=== PATIENT | female | born 1975 | race Caucasian/White ===

== ENCOUNTER 2019-10-08 08:43 | Outpatient (CLI) | payer OTHER, SELFPAY ==
--- NOTE | 2019-10-08 08:49 | MM_ITS ---
WS: [id number] BILATERAL DIGITAL SCREENING MAMMOGRAPHY WITH CAD CLINICAL INFORMATION: SCREENING HISTORY: Screening mammogram. No current complaints. COMPARISON: TECHNIQUE: Bilateral CC and MLO views. FINDINGS: The breasts are composed of heterogeneous fibroglandular density tissue, which can limit the detectio n of small underlying mass lesions. No suspicious mass, asymmetry, calcifications, or architectural d istortion. No evidence of malignancy. [place] centered calcifications left breast. MM/[id number] IMPRESSION: BI-RADS: 2-Benign FOLLOW UP: 1 Year Follow-up Recommend return to annual screening mammography.
== END 2019-10-08 08:44 | disposition home or self-care (01) ==
LOC: RADSHAW 08:47
PROVIDERS: PCP Family Medicine; Visit Provider Family Medicine
DX: Z12.31 Encounter for screening mammogram for malignant neoplasm of breast (principal)
CPT/HCPCS: 77067

== ENCOUNTER 2020-12-09 14:09 | Outpatient (CLI) | payer OTHER, SELFPAY ==
--- NOTE | 2020-12-09 14:19 | MM_ITS ---
WS: [id number] BILATERAL DIGITAL SCREENING MAMMOGRAPHY WITH CAD CLINICAL INFORMATION: SCREENING HISTORY: Screening mammogram. Left axillary soreness COMPARISON: October 08, 2019 TECHNIQUE: Bilateral CC and MLO views. FINDINGS: The breasts are composed of heterogeneous fibroglandular density tissue, which can limit the detectio n of small underlying mass lesions. Stable dense breast tissue upper outer right breast. Lucent cente red calcifications left breast. No suspicious mass, asymmetry, calcifications, or architectural disto rtion. No evidence of malignancy. MM/[id number] IMPRESSION: BI-RADS: 2-Benign FOLLOW UP: 1 Year Follow-up Recommend return to annual screening mammography.
== END 2020-12-09 14:10 | disposition home or self-care (01) ==
LOC: RADSHAW 14:14
PROVIDERS: PCP Family Medicine; Visit Provider Family Medicine
DX: Z12.31 Encounter for screening mammogram for malignant neoplasm of breast (principal)
CPT/HCPCS: 77067

== ENCOUNTER 2022-03-19 11:41 | Inpatient (IN) | payer OTHER, SELFPAY ==
[2022-03-19] VITALS (24 sets, daily range): BP systolic 121–154; BP diastolic 73–101; PULSE 87–105; RESP 10–20; TEMP 36.4–36.8; O2SAT 93–100
--- NOTE | 2022-03-19 12:14 | W.ED.ABDPA2 ---
HPI - Abdominal Pain General: Chief Complaint: Abdominal Pain Stated Complaint: abd pain Time Seen by Provider: 03/19/22 11:52 Source: patient Mode of arrival: ambulatory Limitations: no limitations History of Present Illness: Patient is a 47-year-old female presents to ED today with a complaint of severe abdominal pain. Patient states over the past 3 to 4 days she has had fairly significant discomfort but states starting today her pain is excruciating. Patient states she has been having issues with constipation and has been seen for this and put on bowel regimens but they do not seem to be working. She states last normal bowel movement was approximately 2 weeks ago. She states she has not been able to eat or drink anything over the past 2 days. This morning she began having some vomiting. Patient denies previous abdominal surgeries. Patient during my initial examination is extremely uncomfortable. MD elicited complaint: abdominal pain Pertinent past history: none Onset (ago): day(s) Pain Consistency: constant Location: Diffuse Severity: severe Pain scale (0-10): 10 Quality: cramping and sharp Radiation: none Migration to: no migration Exacerbating factors: eating Relieving factors: nothing Associated Symptoms: Reports constipation, nausea and vomiting; Denies chills, dysuria, fever(s), hematochezia, hematuria, hematemesis and melena Related Data: Patient : No Review of Systems Const: Denies: fever(s), chills, body aches, fatigue or malaise Card: Denies: chest pain Resp: Denies: dyspnea GI: Reports: abdominal pain, nausea, vomiting and constipation; Denies: hematemesis, rectal pain, hematochezia or melena : Denies: flank pain, dysuria or hematuria Musc: Denies: neck pain, back pain, extremity pain or joint pain Skin/Breast: Denies: rash Neuro: Denies: headache(s), numbness in extremities, weakness in extremities, sensory changes or dizziness PFSH ED PFSH: Medical History Chronic constipation Gestational diabetes Major depression Surgical History [place] teeth extracted Family History Other CAD (coronary artery disease) Cancer Clotting disorder Diabetes Social History Smoking and tobacco status: never smoked Alcohol intake: current Alcohol intake frequency: holidays/special occasions only Marital status: Number of children: 3 Current occupation: nurse Physical Exam Const: COMMON NORMALS: average body habitus, patient oriented x3, no limitations, healthy appearing, alert and well nourished GENERAL APPEARANCE: cooperative and in distress (pt is extremely uncomfortable secondary to abdominal pain) HENMT: COMMON NORMALS: normocephalic and atraumatic HEAD & SCALP: normal to inspection, normocephalic and atraumatic Resp: COMMON NORMALS: normal respiratory effort and clear to auscultation bilaterally AUSCULTATION: clear to auscultation bilaterally Cardio: COMMON NORMALS: regular rate and regular rhythm RATE: regular rate RHYTHM: regular rhythm GI: INSPECTION: Yes abdominal distension AUSCULTATION: Yes Hypoactive bowel sounds present PALPATION: Yes Tenderness to palpation present (GI), Yes Guarding due to palpation present (GI) and Yes Rigid due to palpation : COMMON NORMALS: Yes no CVA tenderness BLADDER/KIDNEY EXAM: Yes no CVA tenderness Back/Pelvis: COMMON NORMALS: no CVA tenderness Extremity: COMMON NORMALS: no clubbing, cyanosis or edema, no calf tenderness and no pedal edema GENERAL: Yes normal exam except as noted Neuro: SANDY COMA SCALE: document GCS findings [place] coma scale eye opening: Spontaneous [place] coma scale verbal response: Orientated [place] coma scale motor response: Obey commands [place] coma scale total score: 15 COMMON NORMALS: patient oriented x3, moves all extremities, no focal motor deficits and no sensory deficits noted SENSORIUM/ORIENTATION: Yes alert Skin: COMMON NORMALS: no rashes or lesions noted GENERAL SKIN EXAM: no rashes or lesions noted Course Consultations: Consultation #1: Dr. Varela-taking patient to OR/GI lab for colonoscopy Vital Signs: Vital signs: Vital Signs Temperature 98.2 F 03/19/22 11:46 Pulse Rate 92 03/19/22 13:00 Respiratory Rate 16 03/19/22 13:00 Blood Pressure 148/91 03/19/22 13:00 Pulse Oximetry 98 03/19/22 13:00 Oxygen Delivery Me thod 03/19/22 11:46 MDM - Abdominal Pain Medical Decision Making Patient has a descending colo-colonic intussusception. I spoke to Dr. Varela who will take patient to OR/GI lab for colonoscopy and further intervention/evaluation. Lab Data 03/19/22 12:36 03/19/22 12:36 Labs/Radiology: Radiology Impressions Abdomen/Pelvis CT 03/19/22 12:20 IMPRESSION: 1. [place]-colonic descending colon intussusception. There is distended spur proximal large bowel up to 71 mm. There is no dilated small bowel so I suspect the ileocecal valve is patent. 2. Small amount of free fluid. 3. Small renal lesions. Please see below. 4. Ovary cyst. COMMENTS: 1. Consistent with the [place] [employer]'s Incidental Findings Committee white paper (J Am Sarika Radiol 2018): Any incidental renal lesion less than 1 cm or classified as too small to characterize, or any incidental cystic renal lesion characterized as simple-appearing, is likely benign. No follow-up imaging is recommended for these lesions per consensus recommendations based on imaging criteria. 2. THIS REPORT CONTAINS FINDINGS THAT MAY BE CRITICAL TO PATIENT CARE. The findings were verbally communicated by me to Annie Arambula at 1:03 PM [employer] on 03/19/2022. The findings were acknowledged and understood. Laboratory Results WBC 13.6 10^3/uL (4.0-10.0) H 03/19/22 12:36 RBC 5.15 10^6/uL (4.1-5.3) 03/19/22 12:36 Hgb 13.5 g/dL (11.5-15.3) 03/19/22 12:36 Hct 41.9 % (37.0-47.0) 03/19/22 12:36 MCV 81.4 fl (81-99) 03/19/22 12:36 MCH 26.2 pg (28.0-34.0) L 03/19/22 12:36 MCHC 32.2 g/dL (30.0-36.0) 03/19/22 12:36 RDW 12.6 % (12.1-15.1) 03/19/22 12:36 Plt Count 371 10^3/cmm (130-400) 03/19/22 12:36 MPV 10.6 fL (7.4-10.4) H 03/19/22 12:36 Neut % (Auto) 82.3 % 03/19/22 12:36 Lymph % (Auto) 9.7 % 03/19/22 12:36 [place] % (Auto) 6.6 % 03/19/22 12:36 Eos % (Auto) 0.7 % 03/19/22 12:36 Baso % (Auto) 0.3 % 03/19/22 12:36 Neut # (Auto) 11.23 10^3/uL (1.8-7.7) H 03/19/22 12:36 Lymph # (Auto) 1.3 10^3/uL (0.8-4.8) 03/19/22 12:36 [place] # (Auto) 0.9 10^3/uL (0.2-0.9) 03/19/22 12:36 Eos # (Auto) 0.1 10^3/uL (0.0-0.8) 03/19/22 12:36 Baso # (Auto) 0.0 10^3/uL (0.0-0.1) 03/19/22 12:36 Nucleated RBC % (auto) 0 % 03/19/22 12:36 Nucleated RBCs # 0.0 /100WBC 03/19/22 12:36 Sodium 136 mmol/L (136-145) 03/19/22 12:36 Potassium 3.4 mmol/L (3.5-5.1) L 03/19/22 12:36 Chloride 97 mmol/L (98-107) L 03/19/22 12:36 Carbon Dioxide 23 mmol/L (22-29) 03/19/22 12:36 Anion Gap 19.4 (5-19) H 03/19/22 12:36 BUN 14 mg/dL (6-20) 03/19/22 12:36 Creatinine 0.7 mg/dL (0.5-0.9) 03/19/22 12:36 GFR Calculation 89.7 mL/min (90-130) L 03/19/22 12:36 Glucose 126 mg/dL (65-115) H 03/19/22 12:36 Calculated Osmolality 284 mOsm/kg (285-295) L 03/19/22 12:36 Lactic Acid 2.0 mmol/L (0.5-2.2) 03/19/22 12:36 Calcium 9.4 mg/dL (8.5-10.5) 03/19/22 12:36 Total Bilirubin 0.5 mg/dL (0.15-1.2) 03/19/22 12:36 AST 21 U/L (0-32) 03/19/22 12:36 ALT 9 U/L (0-33) 03/19/22 12:36 Alkaline Phosphatase 96 U/L (35-105) 03/19/22 12:36 Total Protein 7.9 g/dL (6.6-8.7) 03/19/22 12:36 Albumin 4.2 g/dL (3.5-5.2) 03/19/22 12:36 Globulin 3.7 g/dL (1.3-4.6) 03/19/22 12:36 Lipase 31 U/L (13-60) 03/19/22 12:36 HCG, Qual Negative (Negative) 03/19/22 12:36 Discharge Plan Discharge Patient Disposition: Admitted As Inpatient Clinical Impression: Colonic intussusception Condition: Stable Coding Level of Care Code ED Clinical Nurse Specialist for Gina Fwd Exam Comprehensive
--- NOTE | 2022-03-19 12:20 | CTR_ITS ---
PROCEDURE INFORMATION: Exam: CT Abdomen And Pelvis With Contrast Exam date and time: 03/19/2022 12:40 PM Age: 47 years old Clinical indication: Other: Severe ab pain, dec bms, vomiting TECHNIQUE: Imaging protocol: Computed tomography of the abdomen and pelvis with contrast. Radiation optimization: All CT scans at this facility use at least one of these dose optimization techniques: automated exposure control; mA and/or kV adjustment per patient size (includes targeted exams where dose is matched to clinical indication); or iterative reconstruction. Contrast material: OMNI 350; Contrast volume: 100 ml; Contrast route: INTRAVENOUS (IV); Other protocol: This patient has received 0 known CTs and 0 known cardiac nuclear medicine studies in the 12 months prior to the current study. COMPARISON: US pelv w/transvag [id number] 11/03/2015 2:59 PM RADIATION DOSE METRICS: Total DLP (mGy-cm): 700.44 FINDINGS: Liver: Slightly enlarged liver at 177 mm. Mild fatty infiltration. Posterior right lobe 1 cm liver cyst. Gallbladder and bile ducts: Normal. No calcified stones. No ductal dilation. Pancreas: Normal. No ductal dilation. Spleen: Normal. No splenomegaly. Adrenal glands: Normal. No mass. Kidneys and ureters: Small hypodensities under 5 mm in the kidneys presumably cysts. No hydronephrosis. Stomach and bowel: Distended colon without distended small bowel loops. The colon is distended to the splenic flexure where there is an intussusception. Appendix: No evidence of appendicitis. Intraperitoneal space: Small amount of free fluid seen in the left pericolic gutter. Vasculature: Unremarkable. No abdominal aortic aneurysm. Lymph nodes: Unremarkable. No enlarged lymph nodes. Urinary bladder: Unremarkable as visualized. Reproductive: There is a left suspected ovary cyst at 14.5 mm. Bones/joints: Unremarkable. No acute fracture. Soft tissues: Unremarkable. CT/CT abdomen pelvis w con* [id number] IMPRESSION: 1. [place]-colonic descending colon intussusception. There is distended spur proximal large bowel up to 71 mm. There is no dilated small bowel so I suspect the ileocecal valve is patent. 2. Small amount of free fluid. 3. Small renal lesions. Please see below. 4. Ovary cyst. COMMENTS: 1. Consistent with the [place] [employer]'s Incidental Findings Committee white paper (J Am Sarika Radiol 2018): Any incidental renal lesion less than 1 cm or classified as too small to characterize, or any incidental cystic renal lesion characterized as simple-appearing, is likely benign. No follow-up imaging is recommended for these lesions per consensus recommendations based on imaging criteria. 2. THIS REPORT CONTAINS FINDINGS THAT MAY BE CRITICAL TO PATIENT CARE. The findings were verbally communicated by me to Annie Arambula at 1:03 PM [employer] on 03/19/2022. The findings were acknowledged and understood.
[2022-03-19] MEDS: morphine 4 mg/mL SDV 1 mL IVP (12:32)
[2022-03-19] MEDS: ondansetron 2 mg/ML SDV 2 mL 4 MG IVP ×3 (12:32→18:10)
[2022-03-19] MEDS: sodium chloride 0.9% 1,000 ML 999 ML IV (12:32)
[2022-03-19] MEDS: iohexol 350 mg/mL 500 mL Btl (per mL) IV (12:46)
[2022-03-19 13:07] LABS: Basophils % 0.3 %; Eosinophils # 0.1 10^3/uL (0.0-0.8); Eosinophils % 0.7 %; Hematocrit 41.9 % (37.0-47.0); Hemoglobin 13.5 g/dL (11.5-15.3); Lymphocytes # 1.3 10^3/uL (0.8-4.8); Lymphocytes % 9.7 %; Mean Corpuscular HGB Conc 32.2 g/dL (30.0-36.0); Mean Corpuscular Hemoglobin 26.2 pg (28.0-34.0); Mean Corpuscular Volume 81.4 fl (81-99); Mean Platelet Volume 10.6 fL (7.4-10.4); Monocytes # 0.9 10^3/uL (0.2-0.9); Monocytes % 6.6 %; Neutrophils # 11.23 10^3/uL (1.8-7.7); Neutrophils % 82.3 %; Nucleated Red Blood Cells % 0 %; Platelet Count 371 10^3/cmm (130-400); Red Blood Count 5.15 10^6/uL (4.1-5.3); Red Cell Distribution Width 12.6 % (12.1-15.1); White Blood Count 13.6 10^3/uL (4.0-10.0)
[2022-03-19 13:14] LABS: HCG, Serum Qual Negative (Negative)
[2022-03-19 13:21] LABS: Alanine Aminotransferase 9 U/L (0-33); Albumin Level 4.2 g/dL (3.5-5.2); Alkaline Phosphatase 96 U/L (35-105); Blood Urea Nitrogen 14 mg/dL (6-20); Calcium 9.4 mg/dL (8.5-10.5); Carbon Dioxide 23 mmol/L (22-29); Chloride 97 mmol/L (98-107); Globulin 3.7 g/dL (1.3-4.6); Glomerular Filtration Rate 89.7 mL/min (90-130); Glucose 126 mg/dL (65-115); Lipase 31 U/L (13-60); Osmolality Calculated 284 mOsm/kg (285-295); Sodium 136 mmol/L (136-145); Total Bilirubin 0.5 mg/dL (0.15-1.2); Total Protein 7.9 g/dL (6.6-8.7)
[2022-03-19 13:26] LABS: Anion Gap 19.4 (5-19); Aspartate Amino Transferase 21 U/L (0-32); Potassium 3.4 mmol/L (3.5-5.1)
[2022-03-19] MEDS: HYDROmorphone 1 mg/mL INJ 1 mL 0.5 MG IVP ×2 (14:06→18:21)
--- NOTE | 2022-03-19 14:30 | PC.NURSE ---
PT REPORT GIVEN TO CYNDY REDDY FOR SURGERY. PT LEFT FOR SURGERY AT 1430. BELONGINGS GIVEN TO FAMILY AT TIME OF XFER
--- NOTE | 2022-03-19 14:30 | ANES.PREANE2 ---
Pre-Anesthetic Assessment Height/Weight: Height 1.57 m Weight 77.111 kg Temp Pulse Resp BP Pulse Ox O2 Del Method 98.2 F 87 17 149/101 97 03/19/22 11:46 03/19/22 14:00 03/19/22 14:06 03/19/22 14:00 03/19/22 14:00 03/19/22 11:46 Operation Date: 03/19/22 14:30 Proposed Procedures p Colonoscopy(Right) - Micah Varela DO Familial anesthetic complications: None Was Beta Rene taken within 24 hours: N/A Was Clonidine taken within 24 hours: N/A Last intake: > 8hrs Social No alcohol and No tobacco Exam alert, oriented x 3, clear to auscultation bilaterally and regular rate & rhythm Airway Mallampati: Class II Dentition: other (crowns) Neuropsych Headache Anesthetic Plan ASA status: 2 Anesthesia: General Risk of > 500 ml blood loss (7ml/kg in children): No Other Pertinent Information vomiting throughout the day Medications/Allergies Home Medications Medication Instructions Recorded Confirmed Last Taken Type bupropion HCl 150 mg tablet,12 hr 150 mg PO BID #180 tabs 11/05/21 03/17/22 Unknown Rx sustained-release fremanezumab-vfrm 225 mg/1.5 mL ml SUBCUT 03/17/22 03/17/22 Unknown History subcutaneous auto-injector (Ajovy) lactulose 10 gram/15 mL (15 mL) 20 g (30 mL) PO BID #600 mL 03/17/22 03/17/22 Unknown Rx oral solution ubrogepant 100 mg tablet (Ubrelvy) tab PO 03/17/22 03/17/22 Unknown History Allergies Allergy/AdvReac Type Severity Reaction Status Date / Time carisoprodol [From Soma] Allergy Severe Unknown Verified 03/17/22 09:15 [facility] Anesthesia Medical History Chronic constipation Gestational diabetes Major depression Surgical History [place] teeth extracted Family History Other CAD (coronary artery disease) Cancer Clotting disorder Diabetes Social History Smoking and tobacco status: never smoked Alcohol intake: current Alcohol intake frequency: holidays/special occasions only Marital status: Number of children: 3 Current occupation: nurse Data Anesthesia 03/19/22 12:36 03/19/22 12:36 Short CBC 03/19/22 Range/Units 12:36 WBC 13.6 H (4.0-10.0) 10^3/uL Hgb 13.5 (11.5-15.3) g/dL Hct 41.9 (37.0-47.0) % MCV 81.4 (81-99) fl Plt Count 371 (130-400) 10^3/cmm Neut % (Auto) 82.3 % Neut # (Auto) 11.23 H (1.8-7.7) 10^3/uL BMP 03/19/22 12:36 Sodium 136 Potassium 3.4 L Chloride 97 L Carbon Dioxide 23 BUN 14 Creatinine 0.7 Glucose 126 H Calcium 9.4 Liver Function 03/19/22 Range/Units 12:36 Total Bilirubin 0.5 (0.15-1.2) mg/dL AST 21 (0-32) U/L ALT 9 (0-33) U/L Alkaline Phosphatase 96 (35-105) U/L Albumin 4.2 (3.5-5.2) g/dL Cardiac Studies: No Data to Display
[2022-03-19] MEDS: sodium chloride 0.9% 1,000 ML 30 ML IV (14:31)
--- NOTE | 2022-03-19 14:42 | P.HP_ITS ---
Providers/Chief Complaint Primary Care Provider: Momo Bocanegra DO Chief Complaint: abd pain History of Present Illness Izzy King is a 47 year old female who presents to the hospital with a 2-week history of intermittent diffuse abdominal pain. She reports that the pain is sharp and intermittent. Palpation can make the pain worse. Nothing makes pain better. She does report nausea and vomiting. She has had occasional bowel mo vements and been using enemas. She reports that she is not currently passing flatus. She did have a small bowel movement this morning. She also vomited early this morning. She reports that she has not eaten in 48 hours. She denies any family history of colon cancer. She is never had a colonoscopy. She denies night sweats or weight loss. She never had surgery on her belly. CT shows colocolic intussusception Review of Systems General: Reports: 10 or more systems reviewed and unremarkable except in HPI and below Medications/Allergies Home Medications Medication Instructions Recorded Confirmed Last Taken Type bupropion HCl 150 mg tablet,12 hr 150 mg PO BID #180 tabs 11/05/21 03/17/22 Unknown Rx sustained-release fremanezumab-vfrm 225 mg/1.5 mL ml SUBCUT 03/17/22 03/17/22 Unknown History subcutaneous auto-injector (Ajovy) lactulose 10 gram/15 mL (15 mL) 20 g (30 mL) PO BID #600 mL 03/17/22 03/17/22 Unknown Rx oral solution ubrogepant 100 mg tablet (Ubrelvy) tab PO 03/17/22 03/17/22 Unknown History Allergies Allergy/AdvReac Type Severity Reaction Status Date / Time carisoprodol [From Soma] Allergy Severe Unknown Verified 03/17/22 09:15 PFSH Acute PFSH: Medical History Chronic constipation Gestational diabetes Major depression Surgical History [place] teeth extracted Family History Other CAD (coronary artery disease) Cancer Clotting disorder Diabetes Social History Smoking and tobacco status: never smoked Alcohol intake: current Alcohol intake frequency: holidays/special occasions only Marital status: Number of children: 3 Current occupation: nurse Vitals/I&O/Wt Last Vital Signs Temp 98.2 F 03/19/22 11:46 Pulse 87 03/19/22 14:00 Resp 17 03/19/22 14:06 BP 149/101 03/19/22 14:00 Pulse Ox 97 03/19/22 14:00 O2 Del Method 03/19/22 11:46 03/18/22 03/19/22 03/19/22 22:59 06:59 14:59 Intake Total 1000 / 1000 Balance 1000 / 1000 Weight last 48 hrs Weight 170 lb Physical Exam Narrative: General : Patient is well developed , no acute distress, oriented x3 Head : Normal cephalic, a-traumatic. Ears : Pinnae and external canal are normal. Hearing is normal. Eyes : PERRLA, Sclera and injection are normal. No conjunctival discharge. Nose : Mucous membranes are without erythema. Throat : buccal mucosa is normal, gums are without significant recession or hypertrophy. Lungs : Equal chest rise bilaterally, no use of accessory muscles, trachea is midline. Cor : Rate and rhythm are normal. Abdomen : Soft, distended, mild diffuse tenderness, no guarding rebound or masses Extremities : No edema, no cyanosis or clubbing, dorsalis pedis pulses are present bilaterally, non-tender to palpation of calves. Upper extremities are normal bilaterally. Back : non-tender to palpation, no CVA tenderness. Neuro : CN II - XII intact, Upper and lower extremities have equal and full strength Data 03/19/22 12:36 03/19/22 12:36 A&P Assessment and plan (1) Colonic intussusception: Plan Colonoscopy, possible exploratory laparotomy, bowel resection and colostomy formation The risks and benefits of the procedure, including bleeding, infection, intestinal perforation requiring surgery, damage to surrounding structures, complications with the ostomy, missed lesion were explained to the patient. The patient is understanding of the risks and wishes to proceed. Attestations Medical Necessity Statement*: Hospitalization will depend on results of colonoscopy Coding Level of Care Code Acute Code for [facility] Diagnoses Colonic intussusception K56.1
[2022-03-19] MEDS: ceFOXitin 2,000 MG in sodium chloride 0.9% (plus) 50 ML 100 MG IV (16:14)
--- NOTE | 2022-03-19 17:00 | SUR.OPER ---
1550 pt brought to the or by anesthesia already intubated.
--- NOTE | 2022-03-19 17:51 | P.OP_ITS ---
Operative Report Date of procedure: March 19, 2022 Pre-op diagnosis: Colocolic intussusception Post-op diagnosis: same Procedure done: Exploratory laparotomy with left hemicolectomy and end colostomy formation Implants: 19 [place] Nicola drain into the pelvis Specimens removed/disposition: Left colon Surgeon: Dr. Micah Varela DO Anesthesia: General Estimated blood loss (mL): 75 Complications: None apparent Findings: Large pedunculated mass of the left colon with intussusception Brief History: This is a very pleasant 47-year-old female who came into the hospital with 2 weeks of intermittent abdominal pain. CT showed colocolic intussusception. I attempted to resolve the intussusception with colonoscopy and encountered a large mass which would not allow completion. Exploratory laparotomy with left hemicolectomy and end colostomy formation was indicated. The risks and benefits were explained and documented. Procedure: Patient was well in the operative room and placed on the OR table in the supine position. The abdomen was inspected prepped and draped in the usual sterile fashion. A timeout was performed. All present were in agreement. 2 g cefoxitin was given via IV. A 10 blade scalpel was then used to make a midline celiotomy. Dissection was carried down through the fascia with Bovie cautery. The peritoneum was opened bluntly and extended with Bovie cautery. The colon and small bowel were dilated due to an obstructive process in the left colon. A mass could be palpated at the area of intussusception in the mid left colon. A small window was made in the mesentery of the distal sigmoid and the contour stapler with a blue load was used to transect the sigmoid colon near the rectum. The descending colon was then transected proximally in a similar fashion. Enseal was then used to ligate the mesentery and the left colic artery. Specimen was handed off. The abdomen was inspected. The NG tube was in adequate position. There were no masses in the liver. No other pathology in the abdomen was identified. A 19 [place] Nicola drain was then placed into the pelvis coming out of the right lower quadrant. The drain was sewn in place with 3-0 nylon. An area 4 inches left of midline and 2 inches inferior to the umbilicus was chosen for the future colostomy site. The skin and subcutaneous fat was cored out using electrocautery. The anterior rectus sheath was then opened in a cruciate fashion with electrocautery. The rectus muscle was split and the posterior rectus sheath was opened with electrocautery in a linear fashion. The transverse colon was then pulled up through the colostomy site and held into place with a [place]. The midline incision was then closed with #1 PDS x2 in a running fashion. Skin was closed with amanda. The colostomy was then matured in the typical fashion with 3-0 Vicryl sutures. Colostomy appliance was applied. Sterile bandages were applied. Patient tolerated procedure well.
[2022-03-19] MEDS: HYDROmorphone 1 mg/mL INJ 1 mL IVP ×2 (19:58→23:05)
[2022-03-19] MEDS: pantoprazole 40 mg SDV IVP (21:39)
[2022-03-19] MEDS: lanolin oint 7 gm 1 APPLIC TOPICAL (22:06)
[2022-03-19] MEDS: dextrose 5%-sod chloride 0.9% 1,000 ML 125 ML IV (22:06)
[2022-03-19] MEDS: heparin 5,000 unit/mL INJ 1 mL 5000 UNIT SUBCUT (22:06)
--- NOTE | 2022-03-19 22:29 | PC.NURSE ---
Contacted dr apodaca for clarification on ng tube maintenance. dr herrera for ng to be set to low intermittent suction.
[2022-03-20] VITALS (15 sets, daily range): BP systolic 115–136; BP diastolic 69–80; PULSE 93–109; RESP 16–18; TEMP 36.4–37.9; O2SAT 93–99
[2022-03-20] MEDS: HYDROmorphone 1 mg/mL INJ 1 mL IVP ×3 (01:06→05:30)
--- NOTE | 2022-03-20 01:44 | XRR_ITS ---
PROCEDURE INFORMATION: Exam: XR Abdomen Exam date and time: 03/20/2022 1:53 AM Age: 47 years old Clinical indication: Device placement; Gi device; Nasogastric tube; Additional info: Tube placement TECHNIQUE: Imaging protocol: Radiologic exam of the abdomen. Views: Frontal supine view of the abdomen. 1 View. COMPARISON: CT abdomen pelvis w con* [id number] 03/19/2022 12:40 PM FINDINGS: Tubes, catheters and devices: There is a nasogastric tube with its tip and side-port in the stomach. Gastrointestinal tract: There is mild gaseous distention of the transverse colon. Intraperitoneal space: No evidence of free air. Bones/joints: Unremarkable. XR/XR abdomen 1V* [id number] IMPRESSION: Nasogastric tube and side port in the stomach.
[2022-03-20 05:07] LABS: Bilirubin Urine Neg (Negative); Blood Urine 3+ (Negative); Glucose Urine UA Trace (Normal); Ketones Urine 1+ (Negative); Nitrate Urine Negative (Negative); Protein Urine Trace (Negative); Specific Gravity, Urine 1.025 (1.005-1.030); Urine Appearance Clear (CLEAR); Urine Color Yellow (Yellow); pH Urine 5 (5-7)
[2022-03-20 05:08] LABS: Add Urine Microscopic? YES; Leukocyte Esterase Urine Trace (Negative); Urobilinogen Urine Neg (Negative)
[2022-03-20 05:11] LABS: Add Urine Culture? Yes; Bacteria Urine TRACE /hpf; Mucus Urine 2+ /hpf; RBC Urine 80-100 /hpf (0-2); Squamous Epithelial Cell Urine 0-4 /hpf (0-5)
[2022-03-20] MEDS: heparin 5,000 unit/mL INJ 1 mL 5000 UNIT SUBCUT ×3 (05:37→22:30)
[2022-03-20] MEDS: dextrose 5%-sod chloride 0.9% 1,000 ML 125 ML IV ×3 (05:37→22:30)
[2022-03-20 06:20] LABS: Basophils % 0.2 %; Hematocrit 36.8 % (37.0-47.0); Hemoglobin 11.7 g/dL (11.5-15.3); Lymphocytes # 1.4 10^3/uL (0.8-4.8); Lymphocytes % 10.7 %; Mean Corpuscular HGB Conc 31.8 g/dL (30.0-36.0); Mean Corpuscular Hemoglobin 26.2 pg (28.0-34.0); Mean Corpuscular Volume 82.5 fl (81-99); Mean Platelet Volume 9.9 fL (7.4-10.4); Monocytes # 0.9 10^3/uL (0.2-0.9); Neutrophils # 10.29 10^3/uL (1.8-7.7); Neutrophils % 81.8 %; Nucleated Red Blood Cells % 0 %; Platelet Count 337 10^3/cmm (130-400); Red Blood Count 4.46 10^6/uL (4.1-5.3); White Blood Count 12.6 10^3/uL (4.0-10.0)
[2022-03-20 06:37] LABS: Anion Gap 11.5 (5-19); Blood Urea Nitrogen 9 mg/dL (6-20); Calcium 7.4 mg/dL (8.5-10.5); Carbon Dioxide 24 mmol/L (22-29); Chloride 103 mmol/L (98-107); Glomerular Filtration Rate 132.2 mL/min (90-130); Glucose 176 mg/dL (65-115); Magnesium 1.5 mg/dL (1.7-2.3); Osmolality Calculated 283 mOsm/kg (285-295); Phosphorus 2.3 mg/dL (2.5-4.5); Potassium 3.5 mmol/L (3.5-5.1); Sodium 135 mmol/L (136-145)
[2022-03-20] MEDS: magnesium sulfate premix 4 GM/100 ML PREMIX IV (08:51)
--- NOTE | 2022-03-20 09:40 | PM.PN ---
Subjective Subjective: Patient seen and examined. She reports that her pain is well controlled. Denies any nausea or vomiting. The ostomy is having significant output of flatus and some bowel sweat. Vitals/I&O/Wt Last Vital Signs Temp 97.6 F 03/20/22 08:00 Pulse 98 03/20/22 08:00 Resp 18 03/20/22 08:00 BP 130/80 03/20/22 08:00 Pulse Ox 96 03/20/22 08:00 O2 Del Method 03/20/22 06:39 O2 Flow Rate 2 03/19/22 18:37 03/19/22 03/20/22 03/20/22 22:59 06:59 14:59 Intake Total 550 / 1550 1039.583 / 2589.583 Output Total 410 / 410 470 / 880 Balance 140 / 1140 569.583 / 1709.583 Weight last 48 hrs Weight 170 lb Physical Exam Narrative: General: No acute distress, awake alert and oriented x3 Abdomen: Soft, nondistended, appropriately tender to palpation, no guarding rebound or masses Dressings clean dry and intact Ostomy pink patent and producing Urinary Catheter Management: [place]: Cath Placed During This Visit: yes Reason for Continuing Indwelling Catheter: Other Urinary Catheter Date of Insertion: 03/19/22 Urinary Catheter Time of Insertion: 15:55 Data 03/20/22 06:13 03/20/22 06:13 A&P Assessment and plan (1) Colonic intussusception: Plan DC NG tube DC [place] liquid diet Ambulate Attestations Medical Necessity Statement*: Patient requires likely 2 more nights in the hospital for diet advancement and recovery following exploratory laparotomy with left hemicolectomy Coding Level of Care Code Acute Code for [facility] F[facility] Diagnoses Colonic intussusception K56.1
[2022-03-20] MEDS: HYDROcodone-acetaminophen 7.5-325 mg Tablet 1 TAB PO ×4 (12:28→23:37)
[2022-03-20] MEDS: pantoprazole 40 mg SDV IVP (21:31)
[2022-03-20 21:54] LABS: Basophils % 0.2 %; Eosinophils % 0.2 %; Hematocrit 30.9 % (37.0-47.0); Hemoglobin 9.7 g/dL (11.5-15.3); Lymphocytes # 1.2 10^3/uL (0.8-4.8); Lymphocytes % 13.2 %; Mean Corpuscular HGB Conc 31.4 g/dL (30.0-36.0); Mean Corpuscular Hemoglobin 26.4 pg (28.0-34.0); Mean Platelet Volume 9.9 fL (7.4-10.4); Monocytes # 0.7 10^3/uL (0.2-0.9); Monocytes % 7.3 %; Neutrophils # 7.39 10^3/uL (1.8-7.7); Neutrophils % 78.9 %; Nucleated Red Blood Cells % 0 %; Platelet Count 275 10^3/cmm (130-400); Red Blood Count 3.68 10^6/uL (4.1-5.3); Red Cell Distribution Width 13.2 % (12.1-15.1); White Blood Count 9.4 10^3/uL (4.0-10.0)
[2022-03-20 22:11] LABS: Blood Urea Nitrogen 4 mg/dL (6-20); Calcium 7.2 mg/dL (8.5-10.5); Carbon Dioxide 25 mmol/L (22-29); Chloride 99 mmol/L (98-107); Glomerular Filtration Rate 107.2 mL/min (90-130); Glucose 164 mg/dL (65-115); Magnesium 1.9 mg/dL (1.7-2.3); Osmolality Calculated 277 mOsm/kg (285-295); Phosphorus 1.5 mg/dL (2.5-4.5); Sodium 133 mmol/L (136-145)
[2022-03-21] MEDS: HYDROcodone-acetaminophen 7.5-325 mg Tablet 1 TAB PO ×4 (03:50→21:44)
[2022-03-21 04:00] VITALS: BP 104/63; PULSE 93; RESP 17; TEMP 36.9; O2SAT 93
[2022-03-21] MEDS: heparin 5,000 unit/mL INJ 1 mL 5000 UNIT SUBCUT ×3 (05:35→21:43)
[2022-03-21] MEDS: dextrose 5%-sod chloride 0.9% 1,000 ML 125 ML IV (05:36)
[2022-03-21 06:00] VITALS: PULSE 90
[2022-03-21 08:00] VITALS: BP 113/69; PULSE 95; RESP 19; TEMP 36.9; O2SAT 99
[2022-03-21] MEDS: ketorolac 30 mg/mL INJ IVP ×3 (10:05→23:45)
[2022-03-21 12:00] VITALS: BP 111/66; PULSE 90; RESP 18; TEMP 36.7; O2SAT 90
--- NOTE | 2022-03-21 14:27 | PM.PN ---
Subjective Subjective: Patient seen and examined. She reports that her pain is well controlled. Denies any nausea or vomiting. The ostomy is having significant output of flatus and some bowel sweat. Vitals/I&O/Wt Last Vital Signs Temp 98.0 F 03/21/22 12:00 Pulse 90 03/21/22 12:00 Resp 18 03/21/22 12:00 BP 111/66 03/21/22 12:00 Pulse Ox 90 03/21/22 12:00 O2 Del Method 03/21/22 12:00 O2 Flow Rate 2 03/19/22 18:37 03/20/22 03/21/22 03/21/22 22:59 06:59 14:59 Intake Total 1569.0909 / 4109.0909 887.5 / 4996.5909 341.666 / 341.666 Balance 1569.0909 / 4109.0909 887.5 / 4996.5909 341.666 / 341.666 Physical Exam Narrative: General: No acute distress, awake alert and oriented x3 Abdomen: Soft, nondistended, appropriately tender to palpation, no guarding rebound or masses Dressings clean dry and intact Ostomy pink patent and producing flatus Urinary Catheter Management: [place]: Cath Placed During This Visit: yes, but has since been removed by the nurse Reason for Continuing Indwelling Catheter: Perioperative Use in Selected Surgeries Urinary Catheter Date of Insertion: 03/19/22 Urinary Catheter Time of Insertion: 15:55 Date Urinary Catheter Removed: 03/20/22 Time Urinary Catheter Discontinued: 13:50 Data 03/20/22 21:47 03/20/22 21:47 Micro: Microbiology 03/20/22 03:50 Urine Culture - Preliminary Urine,Clean Catch A&P Assessment and plan (1) Colonic intussusception: Plan Full liquid diet IVF pain control Ambulate Await return of bowel function Attestations Medical Necessity Statement*: Patient requires likely 2 more nights in the hospital for diet advancement and recovery following exploratory laparotomy with left hemicolectomy Coding Level of Care Code Acute Code for Chg Fwd Diagnoses Colonic intussusception K56.1
[2022-03-21 16:00] VITALS: BP 124/71; PULSE 90; RESP 18; TEMP 36.7; O2SAT 100
[2022-03-21 20:00] VITALS: BP 113/70; PULSE 127; RESP 17; TEMP 36.7; O2SAT 90
[2022-03-21] MEDS: pantoprazole 40 mg SDV IVP (21:43)
[2022-03-21] MEDS: dextrose 5%-sod chloride 0.9% 1,000 ML 40 ML IV (23:45)
[2022-03-22] VITALS (8 sets, daily range): BP systolic 109–125; BP diastolic 66–73; PULSE 72–89; RESP 15–17; TEMP 36.4–37.2; O2SAT 95–100
[2022-03-22] MEDS: ketorolac 30 mg/mL INJ IVP ×4 (05:19→23:33)
[2022-03-22] MEDS: heparin 5,000 unit/mL INJ 1 mL 5000 UNIT SUBCUT ×3 (05:19→21:28)
[2022-03-22] MEDS: HYDROcodone-acetaminophen 7.5-325 mg Tablet 1 TAB PO ×3 (08:22→23:32)
[2022-03-22 09:50] LABS: Basophils % 0.6 %; Eosinophils # 0.2 10^3/uL (0.0-0.8); Eosinophils % 3.4 %; Hematocrit 28.6 % (37.0-47.0); Hemoglobin 8.8 g/dL (11.5-15.3); Lymphocytes # 0.9 10^3/uL (0.8-4.8); Lymphocytes % 16.9 %; Mean Corpuscular HGB Conc 30.8 g/dL (30.0-36.0); Mean Corpuscular Volume 84.6 fl (81-99); Mean Platelet Volume 10.2 fL (7.4-10.4); Monocytes # 0.4 10^3/uL (0.2-0.9); Monocytes % 6.9 %; Neutrophils # 3.86 10^3/uL (1.8-7.7); Neutrophils % 72.2 %; Nucleated Red Blood Cells % 0 %; Platelet Count 279 10^3/cmm (130-400); Red Blood Count 3.38 10^6/uL (4.1-5.3); Red Cell Distribution Width 13.1 % (12.1-15.1); White Blood Count 5.3 10^3/uL (4.0-10.0)
[2022-03-22 10:05] LABS: Anion Gap 9.3 (5-19); Blood Urea Nitrogen 3 mg/dL (6-20); Calcium 8.1 mg/dL (8.5-10.5); Carbon Dioxide 31 mmol/L (22-29); Chloride 100 mmol/L (98-107); Glomerular Filtration Rate 171.1 mL/min (90-130); Glucose 145 mg/dL (65-115); Magnesium 1.7 mg/dL (1.7-2.3); Osmolality Calculated 283 mOsm/kg (285-295); Phosphorus 2.2 mg/dL (2.5-4.5); Potassium 3.3 mmol/L (3.5-5.1); Sodium 137 mmol/L (136-145)
--- NOTE | 2022-03-22 10:33 | PC.CHAP ---
Pastoral Care Encounter/Spiritual Assessment Type of Contact [] Declined transport assistant visit [] Patient/Family/Request visit [] Outpatient visit [x] Follow-up visit [] Physician referral [] Code/Alert [x] Routine visit [] Staff referral [] Actively dying [] Patient sleeping [x] Family support [] [] Out of room [] Palliative care [] [] Receiving care in room [x] Pre-surgical visit [] Trauma [] Long length of stay [] ICU visit [] Other: Relational/Emotional Strength [x] Patient feels connected with others/family/visitors/staff [] Distress [] Loneliness/isolation [] Abandonment Spirituality of Patient [x] Person of Amanda [] Attends Judaism of their Amanda []x Believes in Prayer [x] Reads Bible or Baptism materials [] There are Spiritual issues to be addressed Program Rep Interventions [x] Prayer x] Active listening [x] Non-anxious presence [x] Spiritual/emotional support [] Crisis/trauma care [] Spiritual counseling [] Bereavement support [] Provided bereavement packet [] Provided Bible/devotional materials [] Provided toy/stuffed animal, coloring book to patient or family member [] Provided Communion [] Anointing/[place] [] Salvation [x] Completed spiritual assessment [] Other: Impact on Illness or Injury [] Angry [] Fearful [] Anxious [] Often cries [] Exhaustion [] Unable to work [] Unable to attend bahai [] Unable to walk/stand [] Unable to read [] Unable to drive [] Unable to eat/drink [] Unable to sleep [] Unable to be with family [] Patient intubated [] Other: Summary Time spent with patient also seen patient on sat the - 20 min
--- NOTE | 2022-03-22 10:42 | PM.PN ---
Subjective Subjective: Patient seen and examined. She reports that her pain is well controlled. Denies any nausea or vomiting. The ostomy is having significant output. Vitals/I&O/Wt Last Vital Signs Temp 97.5 F L 03/22/22 07:43 Pulse 77 03/22/22 07:43 Resp 16 03/22/22 07:43 BP 109/67 03/22/22 07:43 Pulse Ox 96 03/22/22 07:43 O2 Del Method 03/22/22 07:43 O2 Flow Rate 2 03/19/22 18:37 03/21/22 03/22/22 03/22/22 22:59 06:59 14:59 Intake Total 935.417 / 1637.209 728.0133 / 2365.5069 360 / 360 Output Total 155 / 155 Balance 935.417 / 1637.726 951.3450 / 2365.5069 205 / 205 Physical Exam Narrative: General: No acute distress, awake alert and oriented x3 Abdomen: Soft, nondistended, appropriately tender to palpation, no guarding rebound or masses Dressings clean dry and intact Ostomy pink patent and producing Urinary Catheter Management: [place]: Cath Placed During This Visit: yes, but has since been removed by the nurse Reason for Continuing Indwelling Catheter: Perioperative Use in Selected Surgeries Urinary Catheter Date of Insertion: 03/19/22 Urinary Catheter Time of Insertion: 15:55 Date Urinary Catheter Removed: 03/20/22 Time Urinary Catheter Discontinued: 13:50 Data 03/22/22 09:35 03/22/22 09:35 Micro: Microbiology 03/20/22 03:50 Urine Culture - Final Urine,Clean Catch A&P Assessment and plan (1) Colonic intussusception: Plan Soft diet IVF pain control Ambulate Await return of bowel function Attestations Medical Necessity Statement*: Likely home tomorrow after Fonseca's procedure if tolerating diet Coding Level of Care Code Acute Code for Chg Fwd Diagnoses Colonic intussusception K56.1
[2022-03-22] MEDS: magnesium sulfate premix 2 GM/50 ML PIGGYBACK IV (11:09)
[2022-03-22] MEDS: pantoprazole 40 mg SDV IVP (21:27)
[2022-03-23] MEDS: dextrose 5%-sod chloride 0.9% 1,000 ML 40 ML IV (03:13)
[2022-03-23 04:00] VITALS: BP 121/73; PULSE 71; RESP 18; TEMP 36.6; O2SAT 98
[2022-03-23 04:59] LABS: Basophils % 0.4 %; Eosinophils # 0.2 10^3/uL (0.0-0.8); Eosinophils % 4.6 %; Hematocrit 29.5 % (37.0-47.0); Hemoglobin 9.1 g/dL (11.5-15.3); Lymphocytes # 1.3 10^3/uL (0.8-4.8); Lymphocytes % 27.5 %; Mean Corpuscular HGB Conc 30.8 g/dL (30.0-36.0); Mean Corpuscular Hemoglobin 25.9 pg (28.0-34.0); Mean Platelet Volume 9.9 fL (7.4-10.4); Monocytes # 0.4 10^3/uL (0.2-0.9); Monocytes % 7.8 %; Neutrophils # 2.73 10^3/uL (1.8-7.7); Neutrophils % 59.5 %; Nucleated Red Blood Cells % 0 %; Platelet Count 309 10^3/cmm (130-400); Red Blood Count 3.51 10^6/uL (4.1-5.3); Red Cell Distribution Width 12.9 % (12.1-15.1); White Blood Count 4.6 10^3/uL (4.0-10.0)
[2022-03-23] MEDS: ketorolac 30 mg/mL INJ IVP ×2 (05:01→11:09)
[2022-03-23] MEDS: heparin 5,000 unit/mL INJ 1 mL 5000 UNIT SUBCUT (05:01)
[2022-03-23 05:24] LABS: Anion Gap 10.5 (5-19); Blood Urea Nitrogen 4 mg/dL (6-20); Calcium 8.2 mg/dL (8.5-10.5); Carbon Dioxide 29 mmol/L (22-29); Chloride 104 mmol/L (98-107); Glomerular Filtration Rate 132.2 mL/min (90-130); Glucose 108 mg/dL (65-115); Magnesium 1.6 mg/dL (1.7-2.3); Osmolality Calculated 287 mOsm/kg (285-295); Potassium 3.5 mmol/L (3.5-5.1); Sodium 140 mmol/L (136-145)
--- NOTE | 2022-03-23 06:53 | XR_ITS ---
WS: [id number] Chest, 2 view. HISTORY: Follow-up. Inspiration and expiration PA chest radiographs are performed. Lungs are clear. No pneumothorax is id entified. No free air beneath the diaphragm. Heart is normal size. XR/XR chest 2V insp/exp [id number] IMPRESSION: Negative inspiratory and expiratory radiographs of the chest.
[2022-03-23 07:15] VITALS: BP 116/71; PULSE 67; RESP 18; TEMP 36.8; O2SAT 96
[2022-03-23 07:28] LABS: Carcinoembryonic Antigen 0.9 ng/mL (0.0-4.7)
[2022-03-23 11:46] VITALS: BP 135/83; PULSE 80; RESP 18; TEMP 36.7; O2SAT 97
--- NOTE | 2022-03-23 14:00 | PC.NURSE ---
patient verbalized understanding of discharge instructions, home medications, follow up appointments, and ostomy care and management.
--- NOTE | 2022-03-23 16:38 | PM.DCS ---
Discharge Providers Date of Admission: 03/19/22 17:46 Date of Discharge: March 23, 2022 Attending Provider at Admission: Micah Varela DO Attending Provider at Discharge: Micah Varela DO Primary Care Provider: Momo Bocanegra DO Diagnoses at Discharge Discharge Diagnosis (1) Colonic intussusception: Status: Acute Reason for Visit Reason for Visit: abd pain Hospital Course Hospital Course This is a very pleasant 47-year-old female who came to the hospital with a colocolic intussusception. She underwent a followed by left hemicolectomy and colostomy formation. She did well postoperatively and was tolerating a regular diet and having ostomy output prior to discharge. Physical Exam Narrative: General : Patient is well developed , no acute distress, oriented x3 Head : Normal cephalic, a-traumatic. Ears : Pinnae and external canal are normal. Hearing is normal. Eyes : PERRLA, Sclera and injection are normal. No conjunctival discharge. Nose : Mucous membranes are without erythema. Throat : buccal mucosa is normal, gums are without significant recession or hypertrophy. Lungs : Equal chest rise bilaterally, no use of accessory muscles, trachea is midline. Cor : Rate and rhythm are normal. Abdomen : Soft, ND, appropriately tender, no g/r/m, incisions intact without erythema or exudate Extremities : No edema, no cyanosis or clubbing, dorsalis pedis pulses are present bilaterally, non-tender to palpation of calves. Upper extremities are normal bilaterally. Back : non-tender to palpation, no CVA tenderness. Neuro : CN II - XII intact, Upper and lower extremities have equal and full strength Urinary Catheter Management: [place]: Cath Placed During This Visit: yes, but has since been removed by the nurse Reason for Continuing Indwelling Catheter: Perioperative Use in Selected Surgeries Urinary Catheter Date of Insertion: 03/19/22 Urinary Catheter Time of Insertion: 15:55 Date Urinary Catheter Removed: 03/20/22 Time Urinary Catheter Discontinued: 13:50 Discharge Data Studies Completed and Pending Completed Studies During Hospitalization Category Date Time Status CT abdomen pelvis w con* [id number] Stat Cat Scan 03/19/22 12:20 Completed CXRIE [XR chest 2V insp/exp [id number]] Routine Exams 03/23/22 06:53 Completed XR abdomen 1V* [id number] Stat Exams 03/20/22 01:44 Completed Pathology: Surgical [PTH] Routine Pth 03/19/22 15:53 Completed Pathology: Surgical [PTH] Routine Pth 03/19/22 17:56 Completed Pending at discharge Category Date Time Status Magnesium AM LABS Lab 03/24/22 04:00 Ordered Magnesium AM LABS Lab 03/25/22 04:00 Ordered Radiology Impressions Abdomen/Pelvis CT 03/19/22 12:20 IMPRESSION: 1. [place]-colonic descending colon intussusception. There is distended spur proximal large bowel up to 71 mm. There is no dilated small bowel so I suspect the ileocecal valve is patent. 2. Small amount of free fluid. 3. Small renal lesions. Please see below. 4. Ovary cyst. COMMENTS: 1. Consistent with the [employer]'s Incidental Findings Committee white paper (J Am Sarika Radiol 2018): Any incidental renal lesion less than 1 cm or classified as too small to characterize, or any incidental cystic renal lesion characterized as simple-appearing, is likely benign. No follow-up imaging is recommended for these lesions per consensus recommendations based on imaging criteria. 2. THIS REPORT CONTAINS FINDINGS THAT MAY BE CRITICAL TO PATIENT CARE. The findings were verbally communicated by me to Annie Arambula at 1:03 PM [employer] on 03/19/2022. The findings were acknowledged and understood. Abdomen X-Ray 03/20/22 01:44 IMPRESSION: Nasogastric tube and side port in the stomach. Chest X-Ray 03/23/22 06:53 IMPRESSION: Negative inspiratory and expiratory radiographs of the chest. Laboratory Results WBC 4.6 10^3/uL (4.0-10.0) 03/23/22 04:41 RBC 3.51 10^6/uL (4.1-5.3) L 03/23/22 04:41 Hgb 9.1 g/dL (11.5-15.3) L 03/23/22 04:41 Hct 29.5 % (37.0-47.0) L 03/23/22 04:41 MCV 84.0 fl (81-99) 03/23/22 04:41 MCH 25.9 pg (28.0-34.0) L 03/23/22 04:41 MCHC 30.8 g/dL (30.0-36.0) 03/23/22 04:41 RDW 12.9 % (12.1-15.1) 03/23/22 04:41 Plt Count 309 10^3/cmm (130-400) 03/23/22 04:41 MPV 9.9 fL (7.4-10.4) 03/23/22 04:41 Neut % (Auto) 59.5 % 03/23/22 04:41 Lymph % (Auto) 27.5 % 03/23/22 04:41 [place] % (Auto) 7.8 % 03/23/22 04:41 Eos % (Auto) 4.6 % 03/23/22 04:41 Baso % (Auto) 0.4 % 03/23/22 04:41 Neut # (Auto) 2.73 10^3/uL (1.8-7.7) 03/23/22 04:41 Lymph # (Auto) 1.3 10^3/uL (0.8-4.8) 03/23/22 04:41 [place] # (Auto) 0.4 10^3/uL (0.2-0.9) 03/23/22 04:41 Eos # (Auto) 0.2 10^3/uL (0.0-0.8) 03/23/22 04:41 Baso # (Auto) 0.0 10^3/uL (0.0-0.1) 03/23/22 04:41 Nucleated RBC % (auto) 0 % 03/23/22 04:41 Nucleated RBCs # 0.0 /100WBC 03/23/22 04:41 Sodium 140 mmol/L (136-145) 03/23/22 04:41 Potassium 3.5 mmol/L (3.5-5.1) 03/23/22 04:41 Chloride 104 mmol/L (98-107) 03/23/22 04:41 Carbon Dioxide 29 mmol/L (22-29) 03/23/22 04:41 Anion Gap 10.5 (5-19) 03/23/22 04:41 BUN 4 mg/dL (6-20) L 03/23/22 04:41 Creatinine 0.5 mg/dL (0.5-0.9) 03/23/22 04:41 GFR Calculation 132.2 mL/min (90-130) H 03/23/22 04:41 Glucose 108 mg/dL (65-115) 03/23/22 04:41 Calculated Osmolality 287 mOsm/kg (285-295) 03/23/22 04:41 Lactic Acid 2.0 mmol/L (0.5-2.2) 03/19/22 12:36 Calcium 8.2 mg/dL (8.5-10.5) L 03/23/22 04:41 Phosphorus 2.2 mg/dL (2.5-4.5) L 03/22/22 09:35 Magnesium 1.6 mg/dL (1.7-2.3) L 03/23/22 04:41 Total Bilirubin 0.5 mg/dL (0.15-1.2) 03/19/22 12:36 AST 21 U/L (0-32) 03/19/22 12:36 ALT 9 U/L (0-33) 03/19/22 12:36 Alkaline Phosphatase 96 U/L (35-105) 03/19/22 12:36 Total Protein 7.9 g/dL (6.6-8.7) 03/19/22 12:36 Albumin 4.2 g/dL (3.5-5.2) 03/19/22 12:36 Globulin 3.7 g/dL (1.3-4.6) 03/19/22 12:36 Lipase 31 U/L (13-60) 03/19/22 12:36 Carcinoembryonic Ag 0.9 ng/mL (0.0-4.7) 03/23/22 04:41 HCG, Qual Negative (Negative) 03/19/22 12:36 Urine Color Yellow (Yellow) 03/20/22 03:50 Urine Appearance Clear (CLEAR) 03/20/22 03:50 Urine pH 5 (5-7) 03/20/22 03:50 Ur Specific [place] 1.025 (1.005-1.030) 03/20/22 03:50 Urine Protein Trace (Negative) 03/20/22 03:50 Urine Glucose (UA) Trace (Normal) H 03/20/22 03:50 Urine Ketones 1+ (Negative) H 03/20/22 03:50 Urine Blood 3+ (Negative) H 03/20/22 03:50 Urine Nitrate Negative (Negative) 03/20/22 03:50 Urine Bilirubin Neg (Negative) 03/20/22 03:50 Urine Urobilinogen Neg mg/dL (Negative) 03/20/22 03:50 Ur Leukocyte Esterase Trace (Negative) H 03/20/22 03:50 Urine RBC 80-100 /hpf (0-2) H 03/20/22 03:50 Urine WBC 5-10 /hpf (0-5) H 03/20/22 03:50 Ur Squamous Epith Cells 0-4 /hpf (0-5) H 03/20/22 03:50 Amorphous Sediment Not Reportable 03/20/22 03:50 Urine Bacteria Trace /hpf (NONE) 03/20/22 03:50 Urine Mucus 2+ /hpf 03/20/22 03:50 Blood Type O Positive 03/19/22 16:09 Rho(D) Type Positive 03/19/22 16:09 Antibody Screen Negative 03/19/22 16:09 Procedures Performed Left hemicolectomy with colostomy formation Vitals Last Vital Signs Temp 98.0 F 03/23/22 11:46 Pulse 80 03/23/22 11:46 Resp 18 03/23/22 11:46 BP 135/83 03/23/22 11:46 Pulse Ox 97 03/23/22 11:46 O2 Del Method 03/23/22 11:46 O2 Flow Rate 2 03/19/22 18:37 Discharge Plan Discharge Patient Disposition: Home Health Service Condition: Stable Prescriptions: New hydrocodone-acetaminophen 7.5-325 mg tablet 1 tab PO Q6H PRN (Reason: pain) Qty: 20 0RF DOK 100 mg capsule 100 mg PO BID Qty: 20 0RF Continued Ubrelvy 100 mg tablet 1 tab PO DAILY PRN (Reason: Headache) lactulose 10 gram/15 mL (15 mL) solution 20 g PO BID Qty: 600 0RF bupropion HCl 150 mg tablet sustained-release 12 hr 150 mg PO BID Qty: 180 2RF Ubrelvy 100 mg tablet 100 mg PO DAILY PRN (Reason: Headache) Discharge Orders: Discharge Order (Routine); Ordered 03/23/22 Ordered By: Micah Varela Referrals: [facility] ([facility]) [Outside] Micah Varela DO [Physician] - 03/30/22 2:30 pm Momo Bocanegra DO [Primary Care Provider] - 4-7 days (Please call Dr. Bocanegra' office tomorrow morning to schedule a hospital follow up appointment within 1 week. ) Discharge Diet: Advance as tolerated Patient Instructions: Hydrocodone/Acetaminophen (By mouth), Laxative, Stool Softeners (By mouth), Colostomy Care (DC), Opioid Safety Activity Restrictions/Additional Instructions: No lifting, pushing or pulling over 15 lbs for 6 weeks. Do not soak incisions underwater for 2 weeks. Shower daily Discharge Attestations Time Spent in Discharge Care*: less than 30 min Quality Metrics Clinical Quality Measures [ No reported AMI, CVA or VTE this stay] Coding Level of Care Code Acute Code for Chg Fwd Diagnoses Colonic intussusception K56.1
[2022-03-23 16:40] VITALS: BP 135/83; PULSE 80; RESP 18; TEMP 36.7; O2SAT 97
== END 2022-03-23 15:00 | disposition home health service (06) | DRG 331 ==
LOC: ER 13:47 → GILAB 13:50 → MEDSURG 03-20 09:10
PROVIDERS: Admitting Provider Surgery; Emergency Provider Physician Assistant; PCP Family Medicine; Visit Provider Surgery
PROC: 0DJD8ZZ Inspection of Lower Intestinal Tract, Via Natural or Artificial Opening Endoscopic (ICD-10-PCS; CPT 45378; principal; 2022-03-19 14:30)
PROC: 0DTG0ZZ Resection of Left Large Intestine, Open Approach (ICD-10-PCS; CPT 49000; principal; 2022-03-19 15:30)
PROC: 0DTG0ZZ Resection of Left Large Intestine, Open Approach (ICD-10-PCS; CPT 44320; 2022-03-19 15:30)
DX: K56.1 Intussusception (principal); K59.09 Other constipation; F32.9 Major depressive disorder, single episode, unspecified
CPT/HCPCS: 36415; 51702; 71046; 74018; 74177; 80048; 80053; 81001; 82378; 83605; 83690; 83735; 84100; 84703; 85025; 86850; 86900; 87086; 88305; 88309; 96372; 96374; 96375; 96376; 97161; 97530; 99285; C9113; J0131; J0694; J1100; J1170; J1644; J1885; J2270; J2405; J2704; J3475; J3490; J7030; J7042; Q9967

== ENCOUNTER 2022-03-25 18:01 | Inpatient (IN) | payer OTHER, SELFPAY ==
[2022-03-25 18:15] VITALS: BP 137/83; PULSE 92; RESP 18; TEMP 36.9; O2SAT 99; BMI 30.8
--- NOTE | 2022-03-25 19:06 | CTR_ITS ---
PROCEDURE INFORMATION: Exam: CT Abdomen And Pelvis With Contrast Exam date and time: 03/25/2022 7:33 PM Age: 47 years old Clinical indication: Vomiting; Prior surgery; Surgery date: 3-7 days post-operative; Surgery type: Colostomy x6 days; Additional info: Non functioning colostomy TECHNIQUE: Imaging protocol: Computed tomography of the abdomen and pelvis with contrast. Radiation optimization: All CT scans at this facility use at least one of these dose optimization techniques: automated exposure control; mA and/or kV adjustment per patient size (includes targeted exams where dose is matched to clinical indication); or iterative reconstruction. Contrast material: OMNIPAQUE 350; Contrast volume: 95 ml; Contrast route: INTRAVENOUS (IV); Other protocol: This patient has received [address] and 0 known cardiac nuclear medicine studies in the 12 months prior to the current study. COMPARISON: CT abdomen pelvis w con* [id number] 03/19/2022 12:40 PM RADIATION DOSE METRICS: Total DLP (mGy-cm): 687 FINDINGS: Lungs: Left discoid atelectasis and/or scarring. Liver: Stable low-attenuation lesion in the liver measuring > 5mm which is incompletely characterized on this exam. Gallbladder and bile ducts: Normal. No calcified stones. No ductal dilation. Pancreas: Normal. No ductal dilation. Spleen: Normal. No splenomegaly. Adrenal glands: Normal. No mass. Kidneys and ureters: Normal. No hydronephrosis. Stomach and bowel: Left lower quadrant colostomy with inflammation and bowel wall thickening in the portion of the colon within the subcutaneous fat suggesting possible infectious, ischemic or autoimmune colitis. Rectosigmoid colon stump with suture line in the left lower quadrant. Possible partial sigmoid colon resection. The previously noted left colon intussusception in the descending colon is no longer present. Interval appearance of moderate bowel wall thickening in a loop of proximal jejunum which could represent infectious enteritis versus ischemic enteritis. Axial series 3, images 35-54. Appendix: No evidence of appendicitis. Intraperitoneal space: Unremarkable. No free air. No significant fluid collection. Vasculature: Unremarkable. No abdominal aortic aneurysm. Lymph nodes: Unremarkable. No enlarged lymph nodes. Urinary bladder: Unremarkable as visualized. Reproductive: Unremarkable as visualized. Bones/joints: Unremarkable. No acute fracture. Soft tissues: Midline row of skin amanda consistent with recent laparotomy. Inflammation in the subcutaneous fat surrounding the colostomy consistent with postoperative inflammation versus cellulitis. CT/CT abdomen pelvis w con* [id number] IMPRESSION: 1. Left lower quadrant colostomy with inflammation and bowel wall thickening in the portion of the colon within the subcutaneous fat suggesting possible infectious, ischemic or autoimmune colitis. 2. Inflammation in the subcutaneous fat surrounding the colostomy consistent with postoperative inflammation versus cellulitis. 3. Rectosigmoid colon stump with suture line in the left lower quadrant. Possible partial sigmoid colon resection. 4. The previously noted left colon intussusception in the descending colon is no longer present. 5. Interval appearance of moderate bowel wall thickening in a loop of proximal jejunum with edema in the surrounding mesentery which could represent infectious enteritis versus ischemic enteritis. Axial series 3, images 35-54. Internal hernia or closed loop obstruction are not definitely excluded.
[2022-03-25 19:14] LABS: Basophils % 0.5 %; Eosinophils # 0.1 10^3/uL (0.0-0.8); Eosinophils % 2.3 %; Hematocrit 35.3 % (37.0-47.0); Lymphocytes % 17.1 %; Mean Corpuscular HGB Conc 31.2 g/dL (30.0-36.0); Mean Corpuscular Volume 83.5 fl (81-99); Mean Platelet Volume 9.6 fL (7.4-10.4); Monocytes # 0.3 10^3/uL (0.2-0.9); Monocytes % 4.7 %; Neutrophils # 4.31 10^3/uL (1.8-7.7); Neutrophils % 75.1 %; Nucleated Red Blood Cells % 0 %; Platelet Count 441 10^3/cmm (130-400); Red Blood Count 4.23 10^6/uL (4.1-5.3); Red Cell Distribution Width 13.1 % (12.1-15.1); White Blood Count 5.7 10^3/uL (4.0-10.0)
[2022-03-25 19:32] LABS: Alanine Aminotransferase 44 U/L (0-33); Alkaline Phosphatase 101 U/L (35-105); Aspartate Amino Transferase 58 U/L (0-32); Blood Urea Nitrogen 5 mg/dL (6-20); Calcium 9.9 mg/dL (8.5-10.5); Carbon Dioxide 32 mmol/L (22-29); Chloride 99 mmol/L (98-107); Globulin 2.8 g/dL (1.3-4.6); Glomerular Filtration Rate 107.2 mL/min (90-130); Glucose 131 mg/dL (65-115); Lipase 130 U/L (13-60); Osmolality Calculated 295 mOsm/kg (285-295); Sodium 143 mmol/L (136-145); Total Bilirubin 0.2 mg/dL (0.15-1.2); Total Protein 6.8 g/dL (6.6-8.7)
[2022-03-25] MEDS: iohexol 350 mg/mL 500 mL Btl (per mL) IV (19:38)
[2022-03-25] MEDS: sodium chloride 0.9% 1,000 ML 999 ML IV (19:44)
--- NOTE | 2022-03-25 19:53 | W.ED.NAVMDI ---
HPI - Nausea/Vomiting/Diarrhea General: Chief complaint: Nausea/Vomiting/Diarrhea Stated complaint: acid reflux, home health told her to come here Time Seen by Provider: 03/25/22 18:19 History of Present Illness: This 47-year-old female with a past history of intussusception presents to the ER complaining of minimal output from her colostomy. She was diagnosed with intussusception on 03/19/2022 following which she had colectomy and subsequent colostomy. Since discharge from hospital 2 days ago, the colostomy has had essentially no output. She has a colostomy bag which she has not changed since she left the hospital. She vomited once today prior to coming to the ER. She has no fever, cough or shortness of breath. She has minimal abdominal tenderness and continues to eat well. Associated symtoms: Denies change in vision, chest pain, dysuria or headache(s) Review of Systems Const: Denies: chills, body aches or change in appetite Eyes: Denies: change in vision or eye discharge ENMT: Denies: throat pain, dental pain or nasal discharge Card: Denies: chest pain or lightheadedness GI: Reports: abdominal pain (mild), vomiting and other (Minimal output from colostomy.) : Denies: dysuria Musc: Denies: neck pain or back pain Neuro: Denies: headache(s) or weakness in extremities Psych: Denies: depression Gerry/Lymph: Denies: easy bruising All/Imm: Denies: urticaria, tongue swelling or facial swelling PFSH ED PFSH: Medical History Chronic constipation Gestational diabetes Major depression Surgical History [place] teeth extracted Family History Other CAD (coronary artery disease) Cancer Clotting disorder Diabetes Social History Smoking and tobacco status: never smoked Alcohol intake: current Alcohol intake frequency: holidays/special occasions only Marital status: Number of children: 3 Current occupation: nurse Female Reproductive History: Date of last menstrual period: 02/25/22 Physical Exam Const: COMMON NORMALS: no acute distress, patient oriented x3, no limitations and alert HENMT: COMMON NORMALS: normocephalic HEAD & SCALP: normocephalic Eye: COMMON NORMALS: EOMs intact bilaterally Neck/C-Spine: COMMON NORMALS: full ROM and supple Chest: COMMONS NORMALS: normal inspection of the chest Resp: COMMON NORMALS: normal respiratory effort, No retractions, No use of accessory muscles and clear to auscultation bilaterally AUSCULTATION: clear to auscultation bilaterally Cardio: COMMON NORMALS: regular rate, regular rhythm and No murmurs present (Cardio) RATE: regular rate RHYTHM: regular rhythm GI: OTHER: Soft abdomen, surgical scar that is healing satisfactorily with no signs of infection. [place] in situ. Colostomy, covered with colostomy bag that contains a small amount of liquid effluent. Minimal abdominal tenderness with no rigidity or distention. : COMMON NORMALS: Yes no CVA tenderness BLADDER/KIDNEY EXAM: Yes no CVA tenderness Back/Pelvis: COMMON NORMALS: no CVA tenderness and no thoracic nor lumbar tenderness Extremity: GENERAL: Yes normal exam except as noted Neuro: COMMON NORMALS: patient oriented x3 and no focal motor deficits SENSORIUM/ORIENTATION: Yes alert Psych: COMMON NORMALS: mental status grossly normal and cooperative Course Consultations: Consultation #1: Case discussed with surgeon on-call, Dr Tierney. She will see patient in the ER. Time: 21:34 Vital Signs: Vital signs: Vital Signs Temperature 98.4 F 03/25/22 18:15 Pulse Rate 92 03/25/22 20:20 Respiratory Rate 14 03/25/22 20:20 Blood Pressure 138/55 03/25/22 20:20 Pulse Oximetry 97 03/25/22 20:20 Oxygen Delivery Me thod 03/25/22 20:20 MDM - Nausea/Vomiting/Diarrhea Medical Decision Making Medical decision making: Patient presents with nonfunctioning colostomy. She was evaluated by surgeon on-call who admitted her for further management. Lab Data 03/25/22 19:06 03/25/22 19:06 Radiology Impressions Abdomen/Pelvis CT 03/25/22 19:06 IMPRESSION: 1. Left lower quadrant colostomy with inflammation and bowel wall thickening in the portion of the colon within the subcutaneous fat suggesting possible infectious, ischemic or autoimmune colitis. 2. Inflammation in the subcutaneous fat surrounding the colostomy consistent with postoperative inflammation versus cellulitis. 3. Rectosigmoid colon stump with suture line in the left lower quadrant. Possible partial sigmoid colon resection. 4. The previously noted left colon intussusception in the descending colon is no longer present. 5. Interval appearance of moderate bowel wall thickening in a loop of proximal jejunum with edema in the surrounding mesentery which could represent infectious enteritis versus ischemic enteritis. Axial series 3, images 35-54. Internal hernia or closed loop obstruction are not definitely excluded. ADDENDUM: 03/25/222049 History: Patient vomited once before coming to the hospital, but has been eating since then without emesis. ADDENDUM: 03/25/222049 THIS REPORT CONTAINS FINDINGS THAT MAY BE CRITICAL TO PATIENT CARE. The findings were verbally communicated via telephone conference with FERN MORENO at 8:49 PM EMPLOYEE WELLNESS/FITNESS COORDINATOR on 03/25/2022. The findings were acknowledged and understood. Laboratory Results WBC 5.7 10^3/uL (4.0-10.0) 03/25/22 19:06 RBC 4.23 10^6/uL (4.1-5.3) 03/25/22 19:06 Hgb 11.0 g/dL (11.5-15.3) L 03/25/22 19:06 Hct 35.3 % (37.0-47.0) L 03/25/22 19:06 MCV 83.5 fl (81-99) 03/25/22 19:06 MCH 26.0 pg (28.0-34.0) L 03/25/22 19:06 MCHC 31.2 g/dL (30.0-36.0) 03/25/22 19:06 RDW 13.1 % (12.1-15.1) 03/25/22 19:06 Plt Count 441 10^3/cmm (130-400) H 03/25/22 19:06 MPV 9.6 fL (7.4-10.4) 03/25/22 19:06 Neut % (Auto) 75.1 % 03/25/22 19:06 Lymph % (Auto) 17.1 % 03/25/22 19:06 [place] % (Auto) 4.7 % 03/25/22 19:06 Eos % (Auto) 2.3 % 03/25/22 19:06 Baso % (Auto) 0.5 % 03/25/22 19:06 Neut # (Auto) 4.31 10^3/uL (1.8-7.7) 03/25/22 19:06 Lymph # (Auto) 1.0 10^3/uL (0.8-4.8) 03/25/22 19:06 Davidson # (Auto) 0.3 10^3/uL (0.2-0.9) 03/25/22 19:06 Eos # (Auto) 0.1 10^3/uL (0.0-0.8) 03/25/22 19:06 Baso # (Auto) 0.0 10^3/uL (0.0-0.1) 03/25/22 19:06 Nucleated RBC % (auto) 0 % 03/25/22 19:06 Nucleated RBCs # 0.0 /100WBC 03/25/22 19:06 Sodium 143 mmol/L (136-145) 03/25/22 19:06 Potassium 4.0 mmol/L (3.5-5.1) 03/25/22 19:06 Chloride 99 mmol/L (98-107) 03/25/22 19:06 Carbon Dioxide 32 mmol/L (22-29) H 03/25/22 19:06 Anion Gap 16.0 (5-19) 03/25/22 19:06 BUN 5 mg/dL (6-20) L 03/25/22 19:06 Creatinine 0.6 mg/dL (0.5-0.9) 03/25/22 19:06 GFR Calculation 107.2 mL/min (90-130) 03/25/22 19:06 Glucose 131 mg/dL (65-115) H 03/25/22 19:06 Calculated Osmolality 295 mOsm/kg (285-295) 03/25/22 19:06 Calcium 9.9 mg/dL (8.5-10.5) 03/25/22 19:06 Total Bilirubin 0.2 mg/dL (0.15-1.2) 03/25/22 19:06 AST 58 U/L (0-32) H 03/25/22 19:06 ALT 44 U/L (0-33) H 03/25/22 19:06 Alkaline Phosphatase 101 U/L (35-105) 03/25/22 19:06 Total Protein 6.8 g/dL (6.6-8.7) 03/25/22 19:06 Albumin 4.0 g/dL (3.5-5.2) 03/25/22 19:06 Globulin 2.8 g/dL (1.3-4.6) 03/25/22 19:06 Lipase 130 U/L (13-60) H 03/25/22 19:06 Discharge Plan Discharge Patient Disposition: Admitted As Inpatient Clinical Impression: Constipation Condition: Stable Coding Level of Care Code ED Fleet Manager for Chg Fwd Exam Comprehensive
[2022-03-25 20:20] VITALS: BP 138/55; PULSE 92; RESP 14; O2SAT 97
--- NOTE | 2022-03-25 22:01 | P.HP_ITS ---
Providers/Chief Complaint Admitting Physician: Emergency room physician Primary Care Provider: Momo Bocanegra DO Chief Complaint: acid reflux, home health told her to come here History of Present Illness Izzy King is a 47 year old female who underwent a sigmoid resection for intussusception on 03/19/2022. The patient initially did well. The patient returned to the hospital today with nausea and vomiting. Patient also had abdominal pain. This appears to have resolved. The patient underwent a CT scan of her abdomen which shows a large amount of stool throughout her colon. A question of possible stenosis at the ostomy/abdominal wall. Review of Systems General: Reports: 10 or more systems reviewed and unremarkable except in HPI and below Medications/Allergies Home Medications Medication Instructions Recorded Confirmed Last Taken Type bupropion HCl 150 mg tablet,12 hr 150 mg PO BID #180 tabs 11/05/21 03/23/22 Unknown Rx sustained-release lactulose 10 gram/15 mL (15 mL) 20 g (30 mL) PO BID #600 mL 03/17/22 03/23/22 Unknown Rx oral solution ubrogepant 100 mg tablet (Ubrelvy) 1 tab PO DAILY PRN Headache 03/17/22 03/23/22 Unknown History ubrogepant 100 mg tablet (Ubrelvy) 100 mg PO DAILY PRN Headache 03/19/22 03/23/22 Unknown History docusate sodium 100 mg capsule 100 mg PO BID #20 caps 03/23/22 03/23/22 Unknown Rx (DOK) hydrocodone 7.5 mg-acetaminophen 1 tab PO Q6H PRN pain #20 tabs 03/23/22 03/23/22 Unknown Rx 325 mg tablet Allergies Allergy/AdvReac Type Severity Reaction Status Date / Time carisoprodol [From Soma] Allergy Severe Unknown Verified 03/17/22 09:15 PFSH Acute PFSH: Medical History Chronic constipation Gestational diabetes Major depression Surgical History [place] teeth extracted Family History Other CAD (coronary artery disease) Cancer Clotting disorder Diabetes Social History Smoking and tobacco status: never smoked Alcohol intake: current Alcohol intake frequency: holidays/special occasions only Marital status: Number of children: 3 Current occupation: nurse Female Reproductive History: Date of last menstrual period: 02/25/22 Vitals/I&O/Wt Last Vital Signs Temp 98.4 F 03/25/22 18:15 Pulse 92 03/25/22 20:20 Resp 14 03/25/22 20:20 BP 138/55 03/25/22 20:20 Pulse Ox 97 03/25/22 20:20 O2 Del Method 03/25/22 20:20 Weight last 48 hrs Weight 168 lb 9.6 oz Physical Exam Narrative: Generally: No acute distress HEENT: Normocephalic atraumatic, pupils are equal round reactive to light. Oral nasal passages are clear. Neck: Treatment or motion, nontender. There is no adenopathy. The patient's trachea is midline. The patient has no thyromegaly Lungs: Clear to auscultation and percussion Heart: Regular rate and rhythm without murmurs. There is no S3 or S4. There is no rubs clicks or JVD noted. Abdomen: Soft, nondistended. The patient has amanda in her midline. The patient's midline incision appears to be healing well. The patient does not have any rushes or tinkles that I can appreciate. The patient's ostomy appears to be viable. There may be some stenosis at the abdominal wall interface. I was unable to get my finger completely into the abdomen. This may indicate some stenosis. The patient also had some discomfort. Therefore I did not aggressively try to dilate this. Pelvis: Stable both AP and medial compression Extremities: There is no obvious deformities or point tenderness. The patient has no clubbing cyanosis or edema Neurologic: Patient is awake, alert, oriented x3. Patient moves all 4 extremities without difficulty. The patient sensations intact to light touch throughout. Data 03/25/22 19:06 03/25/22 19:06 Attestation for Other Data: I personally reviewed and interpreted the following: Other data: I reviewed the patient's labs as well as the CT scan of the abdomen and pelvis. A&P Assessment and plan (1) Constipation: We will admit the patient to the surgery service. We will hydrate the patient. We will give the patient some laxatives. The patient has nausea and vomiting we will take the patient to the operating room in the morning for an examination under anesthesia. Hopefully will be able to dilate up her ostomy. The patient is also complaining of some reflux. We will place the patient on some Protonix. The patient can have clear liquids now. The patient be n.p.o. after midnight. The patient is n.p.o. for possible examination under anesthesia. Qualifiers: Constipation type: slow transit constipation Qualified Code(s): K59.01 - Slow transit constipation Attestations Medical Necessity Statement*: should be in the hospital less than 2 days. Coding Level of Care Code 20782 Medical Decision Making High Complexity Diagnoses Constipation K59.01 Constipation type: slow transit constipation
[2022-03-25] MEDS: lactulose oral liq 20 gm/30 mL UDC 30 GM PO (22:14)
[2022-03-25] MEDS: pantoprazole DR 40 mg Tablet PO (22:14)
[2022-03-25] MEDS: enoxaparin 40 mg/0.4 mL Syringe SUBCUT (22:15)
[2022-03-25] MEDS: D5-NS 0.45% + KCL 20 mEq 20 MEQ/1,000 ML BAG 75 MEQ IV (22:20)
[2022-03-25 23:10] VITALS: BP 132/57; PULSE 81; RESP 14; O2SAT 97
--- NOTE | 2022-03-25 23:38 | PC.NURSE ---
Upon arriving to the floor from the ED, patient c/o heartburn, stating The Protonix didn't help. Dr. Tierney notified and ordered PRN Maalox. Patient very tearful at this time.
[2022-03-25] MEDS: ondansetron 2 mg/ML SDV 2 mL 4 MG IVP (23:42)
--- NOTE | 2022-03-25 23:59 | PC.NURSE ---
Patient vomited large amount of emesis at this time.
[2022-03-26] VITALS (10 sets, daily range): BP systolic 120–146; BP diastolic 62–81; PULSE 71–90; RESP 10–18; TEMP 36.2–37.2; O2SAT 94–97
[2022-03-26 02:04] LABS: Hematocrit 33.1 % (37.0-47.0)
[2022-03-26 02:26] LABS: Alanine Aminotransferase 46 U/L (0-33); Albumin Level 3.7 g/dL (3.5-5.2); Alkaline Phosphatase 84 U/L (35-105); Anion Gap 15.6 (5-19); Aspartate Amino Transferase 66 U/L (0-32); Blood Urea Nitrogen 5 mg/dL (6-20); Calcium 9.1 mg/dL (8.5-10.5); Carbon Dioxide 30 mmol/L (22-29); Chloride 99 mmol/L (98-107); Globulin 2.8 g/dL (1.3-4.6); Glomerular Filtration Rate 107.2 mL/min (90-130); Glucose 126 mg/dL (65-115); Osmolality Calculated 291 mOsm/kg (285-295); Potassium 3.6 mmol/L (3.5-5.1); Sodium 141 mmol/L (136-145); Total Bilirubin 0.2 mg/dL (0.15-1.2); Total Protein 6.5 g/dL (6.6-8.7)
[2022-03-26] MEDS: acetaminophen 325 mg Tablet 650 MG PO (03:04)
[2022-03-26] MEDS: alum-mag-hydroxide-sime 30 mL UDC PO ×2 (04:50)
[2022-03-26] MEDS: ondansetron 2 mg/ML SDV 2 mL 4 MG IVP ×3 (04:50→22:23)
--- NOTE | 2022-03-26 05:08 | PC.NURSE ---
Patient vomitied emesis. Patient states I think I threw up that Maalox syrup. PRN Zofran not due at this time. Dr. Tierney called and one time Zofran ordered. Home dose of PRN Kiana ordered as well.
[2022-03-26] MEDS: pantoprazole DR 40 mg Tablet PO ×2 (08:44→19:00)
--- NOTE | 2022-03-26 09:45 | PM.PN ---
Subjective Subjective: Relatively stable overnight No ostomy output Feels somewhat better Medications: Reviewed: Yes Vitals/I&O/Wt Last Vital Signs Temp 98.0 F 03/26/22 08:00 Pulse 78 03/26/22 08:00 Resp 17 03/26/22 08:00 BP 132/80 03/26/22 08:00 Pulse Ox 97 03/26/22 08:00 O2 Del Method 03/26/22 04:00 03/25/22 03/26/22 03/26/22 22:59 06:59 14:59 Intake Total 1000 / 1000 Output Total 50 / 50 Balance 1000 / 1000 -50 / 950 Weight last 48 hrs Weight 168 lb 9.6 oz Physical Exam Narrative: Generally: No acute distress Lungs: Clear to auscultation Cardiovascular: Regular rate and rhythm without murmurs Abdomen: Soft, nontender without masses. Ostomy is viable. There is no stool in her bag. Extremities: No obvious deformities or point tenderness suggestive of fracture. Patient has no clubbing cyanosis or edema Data 03/26/22 01:05 03/26/22 01:05 A&P Assessment and plan (1) Constipation: We will take the patient to the operating room today for an examination under anesthesia and dilation of her ostomy. The risk and benefits of been explained to the patient and the patient's family. The patient has agreed to these risk and benefits would like to proceed. Attestations Medical Necessity Statement*: Operative intervention Coding Level of Care Code 13500 Medical Decision Making High Complexity Diagnoses Constipation K59.00
[2022-03-26] MEDS: sodium chloride 0.9% 1,000 ML 30 ML IV (11:57)
[2022-03-26] MEDS: Fleet Enema 133 mL Enema PR (13:14)
--- NOTE | 2022-03-26 13:18 | PM.OP ---
Operative Report Date of procedure: March 26, 2022 Pre-op diagnosis: Stenotic ostomy, fecal impaction Post-op diagnosis: same Procedure done: Dilation of ostomy under IV sedation Pathology: none sent Surgeon: Rupal Tierney Anesthesia: MAC Estimated blood loss: None Complications: None noted Findings: Colostomy dilated easily. A fleets enema was placed down the colostomy. There was some solid stool return Condition: stable Disposition: PACU Brief History: Is a 47-year-old female status post an end colostomy with Fonseca's pouch. The patient had a large sigmoid polyp which was causing intussusception. The patient returned approximately 6 days after her operation with abdominal pain and nausea. The patient CT scan showed a colon full of stool. Procedure: Procedure in detail: Patient was brought to the operating room placed in supine position. After adequate IV sedation. The patient amanda were removed from the patient's midline. The patient's colostomy bag was removed. The patient's ostomy was digitally inspected. It was slightly stenotic. I was able to get my finger past the fascia and into the abdomen. I gave the patient a fleets enema down her colostomy. There was some return of hard stool. Once again, the patient's colostomy is viable. The patient tolerated procedure well. Follow procedure spoke with the patient's at length. I explained the above findings. All questions were addressed.
--- NOTE | 2022-03-26 13:58 | P.ANESASSM_ITS ---
Pre-Anesthetic Assessment Height/Weight: Height 1.57 m Weight 76.476 kg Temp Pulse Resp BP Pulse Ox O2 Del Method 97.2 F L 89 18 120/70 95 03/26/22 13:36 03/26/22 13:36 03/26/22 13:36 03/26/22 13:36 03/26/22 13:36 03/26/22 13:36 Operation Date: 03/26/22 13:25 Proposed Procedures p Colonoscopy Dilation(Not Applicable) - Rupal Tierney MD Familial anesthetic complications: none Was Beta Rene taken within 24 hours: N/A Was Clonidine taken within 24 hours: N/A Last intake: Intake Last Liquid Date 03/26/22 Last Liquid Time 00:00 Last Solid Date 03/25/22 Last Solid Time 12:00 Social No alcohol and No tobacco Exam alert, oriented x 3, clear to auscultation bilaterally and regular rate & rhythm Airway Submandibular: within normal limits Cervical ROM: within normal limits Mallampati: Class II Dentition: full GI S/P colectomy and colostomy--obstructed Neuropsych Anxiety and Depression Anesthetic Plan ASA status: 2 Anesthesia: MAC Other: POCUS of stomach revealed very little volume Medications/Allergies Home Medications Medication Instructions Recorded Confirmed Last Taken Type bupropion HCl 150 mg tablet,12 hr 150 mg PO BID #180 tabs 11/05/21 03/25/22 03/25/22 Rx sustained-release lactulose 10 gram/15 mL (15 mL) 20 g (30 mL) PO BID #600 mL 03/17/22 03/25/22 03/25/22 Rx oral solution ubrogepant 100 mg tablet (Ubrelvy) 100 mg PO DAILY PRN Headache 03/19/22 03/25/22 Unknown History docusate sodium 100 mg capsule 100 mg PO BID #20 caps 03/23/22 03/25/22 03/25/22 Rx (DOK) hydrocodone 7.5 mg-acetaminophen 1 tab PO Q6H PRN pain #20 tabs 03/23/22 03/25/22 03/25/22 09:00 Rx 325 mg tablet naproxen sodium 220 mg capsule 220 mg PO BID PRN Pain 03/25/22 03/25/22 Unknown History Allergies Allergy/AdvReac Type Severity Reaction Status Date / Time carisoprodol [From Soma] Allergy Severe Unknown Verified 03/17/22 09:15 Current Medications Generic Name Dose Route Start Last Admin Trade Name Freq PRN Reason Stop Dose Admin Acetaminophen 650 mg 03/25/22 21:51 03/26/22 03:04 Acetaminophen 325 Mg Tablet PO 650 mg Q6H PRN Administration Mild/Mod Pain Or Temp >/= 101 Al Hydrox/Mg Hydrox/Simethicone 30 ml 03/25/22 23:38 03/26/22 04:50 Oapm-Kmu-Srswdwkie-Bobby 30 Ml Udc PO 30 ml Q4H PRN Administration INDIGESTION Enoxaparin Sodium 40 mg 03/25/22 22:00 03/25/22 22:15 Enoxaparin 40 Mg/0.4 Ml Syringe SUBCUT 40 mg Q24H RASHAWN Administration Potassium Chloride/Dextrose/Sod Cl 20 meq in 1,000 mls @ 75 mls/hr 03/25/22 22:00 03/25/22 22:20 D5-Ns 0.45% + Kcl 20 Meq IV 75 mls/hr .[id number] RASHAWN Administration Sodium Chloride 1,000 mls @ 30 mls/hr 03/26/22 11:45 03/26/22 11:57 Sodium Chloride 0.9% IV 03/27/22 11:44 30 mls/hr .Q24H RASHAWN Administration Ondansetron HCl 4 mg 03/25/22 21:51 03/25/22 23:42 Ondansetron 2 Mg/Ml Sdv 2 Ml IVP 4 mg Q8H PRN Administration vomiting, or N/V if npo Pantoprazole Sodium 40 mg 03/25/22 21:55 03/26/22 08:[address] 40 Mg Tablet PO 40 mg BID RASHAWN Administration PFSH Anesthesia Medical History Chronic constipation Gestational diabetes Major depression Surgical History [place] teeth extracted Family History Other CAD (coronary artery disease) Cancer Clotting disorder Diabetes Social History Smoking and tobacco status: never smoked Alcohol intake: current Alcohol intake frequency: holidays/special occasions only Marital status: Number of children: 3 Current occupation: nurse Female Reproductive History Date of last menstrual period: 02/25/22 Data Anesthesia 03/26/22 01:05 03/26/22 01:05 Short CBC 03/25/22 03/26/22 Range/Units 19:06 01:05 WBC 5.7 (4.0-10.0) 10^3/uL Hgb 11.0 L 10.0 L (11.5-15.3) g/dL Hct 35.3 L 33.1 L (37.0-47.0) % MCV 83.5 (81-99) fl Plt Count 441 H (130-400) 10^3/cmm Neut % (Auto) 75.1 % Neut # (Auto) 4.31 (1.8-7.7) 10^3/uL BMP 03/25/22 03/26/22 19:06 01:05 Sodium 143 141 Potassium 4.0 3.6 Chloride 99 99 Carbon Dioxide 32 H 30 H BUN 5 L 5 L Creatinine 0.6 0.6 Glucose 131 H 126 H Calcium 9.9 9.1 Liver Function 03/25/22 03/26/22 Range/Units 19:06 01:05 Total Bilirubin 0.2 0.2 (0.15-1.2) mg/dL AST 58 H 66 H (0-32) U/L ALT 44 H 46 H (0-33) U/L Alkaline Phosphatase 101 84 (35-105) U/L Albumin 4.0 3.7 (3.5-5.2) g/dL Cardiac Studies: No Data to Display
--- NOTE | 2022-03-26 14:00 | ANE.PACU2 ---
Inpatient post-anesthesia follow up: Airway intact: Yes Vital signs: Temperature 97.2 F Pulse Rate 89 Respiratory Rate 18 Blood Pressure 120/70 Pulse Oximetry 95 Oxygen Delivery Me thod Room Air Oxygen Flow Rate Fraction of Inspir ed Oxygen Hydration adequate: Yes Nausea and vomiting: No Pain level: 1 Mental status: Baseline
[2022-03-26] MEDS: D5-NS 0.45% + KCL 20 mEq 20 MEQ/1,000 ML BAG 75 MEQ IV (14:41)
--- NOTE | 2022-03-26 18:00 | PC.NURSE ---
Physician Notification: Pt pressed call light to notified this nurse that she began vomiting again and believed there to be stool in the emesis. Charge nurse and this nurse went to pts room to inspect emesis. Stool noticed in bucket with emesis. Dr. Tierney was notified of occurrence. Physician stated, She is going to continue to vomit due to her obstruction. What would you like to do? Place an NG tube or I can take her back to surgery. We can place NG tube and I will put in scheduled enemas. I will evaluate tomorrow. At this time pt does not want surgery or NG tube placed. Pt would like to ambulate and try lactulose which is scheduled. Pt states, I can feel my bowels moving. Just please give me time to try on my own.
[2022-03-26] MEDS: enoxaparin 40 mg/0.4 mL Syringe SUBCUT (21:01)
[2022-03-26] MEDS: lactulose oral liq 20 gm/30 mL UDC 30 GM PO (21:01)
[2022-03-27] VITALS (7 sets, daily range): BP systolic 116–163; BP diastolic 67–88; PULSE 77–104; RESP 16–20; TEMP 36.6–37.4; O2SAT 95–97
[2022-03-27] MEDS: alum-mag-hydroxide-sime 30 mL UDC PO (01:58)
[2022-03-27] MEDS: lactulose oral liq 20 gm/30 mL UDC 30 GM PO ×4 (01:58→20:30)
[2022-03-27] MEDS: D5-NS 0.45% + KCL 20 mEq 20 MEQ/1,000 ML BAG 75 MEQ IV ×2 (04:38→17:20)
[2022-03-27] MEDS: pantoprazole DR 40 mg Tablet PO (08:25)
[2022-03-27] MEDS: ondansetron 2 mg/ML SDV 2 mL 4 MG IVP (08:25)
--- NOTE | 2022-03-27 10:53 | P.PN_ITS ---
Subjective Subjective: I was called by the nurse late last night. I asked her to place an NG tube. For some reason this was not done. The patient continues to have nausea and vomiting this morning. We will place an NG tube. We will get labs. The patient has been on IV fluids. The patient states that she feels better after emesis. The patient has had some output from her ostomy. Unfortunately it has not been much. Vitals/I&O/Wt Last Vital Signs Temp 99.4 F 03/27/22 08:00 Pulse 77 03/27/22 08:00 Resp 18 03/27/22 08:00 BP 116/67 03/27/22 08:00 Pulse Ox 95 03/27/22 08:00 O2 Del Method 03/27/22 08:00 03/26/22 03/27/22 03/27/22 22:59 06:59 14:59 Intake Total 1000 / 0 1000 / 3050 Balance 1000 / 0 1000 / 3050 Weight last 48 hrs Weight 168 lb 9.6 oz Physical Exam Narrative: Generally: Somewhat ill-appearing female Lungs: Clear to auscultation and percussion Heart: Regular rate and rhythm without murmurs. Thankfully, the patient's not tachycardic Abdomen: Soft, nontender without masses. The patient's midline wound is well- healed. The patient has some stool in her ostomy bag. It is not hard. Is not thick. There is also not much. Data 03/26/22 01:05 03/26/22 01:05 A&P Assessment and plan (1) Constipation: This patient has severe constipation. I do not believe the patient requires operative intervention at this time. I am not sure that performing a colonoscopy and trying to wash out all of the stool in her colon would be beneficial. This may be the way to go. I do not believe taken the patient in the operating room and performing an ileostomy would be beneficial at this time. I explained all these options to the patient and her . We will place an NG tube. We will start give the patient some mineral oil down the NG tube. We will try and see if and get the patient cleaned out from above. We are starting to see some stool output. I think we are slowly making some progress. Again, we will get some labs to make sure the patient's not getting dehydrated. Attestations Medical Necessity Statement*: NG tube Coding Level of Care Code Acute Code for Chg Fwd Diagnoses Constipation K59.00
--- NOTE | 2022-03-27 10:57 | XRR_ITS ---
PROCEDURE INFORMATION: Exam: XR Abdomen Exam date and time: 03/27/2022 11:49 AM Age: 47 years old Clinical indication: Other: Ng placement; Prior surgery; Surgery date: <1 month; Surgery type: Colon; Additional info: Verify ng tube placement. TECHNIQUE: Imaging protocol: Radiologic exam of the abdomen. Views: Frontal supine view of the abdomen. 1 View. COMPARISON: CT abdomen pelvis w con* [id number] 03/25/2022 7:33 PM FINDINGS: Tubes, catheters and devices: High position of feeding tube, with proximal port in the distal esophagus. Gastrointestinal tract: Nonspecific bowel gas pattern. Bones/joints: Unremarkable. XR/XR KUB portable [id number] IMPRESSION: High position of feeding tube, advancement is recommended.
[2022-03-27] MEDS: morphine 4 mg/mL SDV 1 mL 2 MG IVP ×2 (11:45→17:19)
[2022-03-27 12:25] LABS: Basophils % 0.5 %; Eosinophils # 0.1 10^3/uL (0.0-0.8); Eosinophils % 1.8 %; Hematocrit 34.6 % (37.0-47.0); Hemoglobin 10.5 g/dL (11.5-15.3); Lymphocytes % 17.1 %; Mean Corpuscular HGB Conc 30.3 g/dL (30.0-36.0); Mean Corpuscular Hemoglobin 25.7 pg (28.0-34.0); Mean Corpuscular Volume 84.6 fl (81-99); Mean Platelet Volume 9.7 fL (7.4-10.4); Monocytes # 0.4 10^3/uL (0.2-0.9); Monocytes % 7.4 %; Neutrophils # 4.04 10^3/uL (1.8-7.7); Neutrophils % 72.7 %; Nucleated Red Blood Cells % 0 %; Platelet Count 439 10^3/cmm (130-400); Red Blood Count 4.09 10^6/uL (4.1-5.3); Red Cell Distribution Width 12.9 % (12.1-15.1); White Blood Count 5.6 10^3/uL (4.0-10.0)
[2022-03-27 12:37] LABS: Anion Gap 15.9 (5-19); Blood Urea Nitrogen 8 mg/dL (6-20); Calcium 9.3 mg/dL (8.5-10.5); Carbon Dioxide 28 mmol/L (22-29); Chloride 97 mmol/L (98-107); Glomerular Filtration Rate 107.2 mL/min (90-130); Glucose 117 mg/dL (65-115); Osmolality Calculated 283 mOsm/kg (285-295); Potassium 3.9 mmol/L (3.5-5.1); Sodium 137 mmol/L (136-145)
[2022-03-27] MEDS: mineral oil 30 mL UDC NG-TUBE (16:27)
[2022-03-27] MEDS: enoxaparin 40 mg/0.4 mL Syringe SUBCUT (23:15)
[2022-03-28] VITALS (7 sets, daily range): BP systolic 114–143; BP diastolic 73–79; PULSE 89–94; RESP 16–18; TEMP 36.7–36.8; O2SAT 95–98
[2022-03-28] MEDS: lactulose oral liq 20 gm/30 mL UDC 30 GM PO ×4 (03:47→21:28)
[2022-03-28 04:04] LABS: Basophils % 0.5 %; Eosinophils # 0.2 10^3/uL (0.0-0.8); Eosinophils % 3.4 %; Hematocrit 34.3 % (37.0-47.0); Hemoglobin 10.7 g/dL (11.5-15.3); Lymphocytes # 1.5 10^3/uL (0.8-4.8); Lymphocytes % 27.2 %; Mean Corpuscular HGB Conc 31.2 g/dL (30.0-36.0); Mean Corpuscular Hemoglobin 25.8 pg (28.0-34.0); Mean Corpuscular Volume 82.9 fl (81-99); Mean Platelet Volume 9.6 fL (7.4-10.4); Monocytes # 0.6 10^3/uL (0.2-0.9); Monocytes % 9.8 %; Neutrophils # 3.28 10^3/uL (1.8-7.7); Neutrophils % 58.4 %; Nucleated Red Blood Cells % 0 %; Platelet Count 433 10^3/cmm (130-400); Red Blood Count 4.14 10^6/uL (4.1-5.3); Red Cell Distribution Width 12.8 % (12.1-15.1); White Blood Count 5.6 10^3/uL (4.0-10.0)
[2022-03-28 04:31] LABS: Anion Gap 12.7 (5-19); Blood Urea Nitrogen 10 mg/dL (6-20); Calcium 9.3 mg/dL (8.5-10.5); Carbon Dioxide 29 mmol/L (22-29); Chloride 98 mmol/L (98-107); Glomerular Filtration Rate 107.2 mL/min (90-130); Glucose 107 mg/dL (65-115); Osmolality Calculated 282 mOsm/kg (285-295); Potassium 3.7 mmol/L (3.5-5.1); Sodium 136 mmol/L (136-145)
[2022-03-28] MEDS: pantoprazole DR 40 mg Tablet PO ×2 (09:02→15:56)
[2022-03-28] MEDS: D5-NS 0.45% + KCL 20 mEq 20 MEQ/1,000 ML BAG 75 MEQ IV ×2 (09:02→21:27)
[2022-03-28] MEDS: morphine 4 mg/mL SDV 1 mL 2 MG IVP (11:49)
[2022-03-28] MEDS: ketorolac 30 mg/mL INJ IVP ×2 (15:56→22:46)
--- NOTE | 2022-03-28 16:56 | PM.PN ---
Subjective Subjective: Patient reports feeling much better. She is having output from her ostomy. Denies any nausea or vomiting, but there is significant output from her NG tube Vitals/I&O/Wt Last Vital Signs Temp 98.0 F 03/28/22 12:00 Pulse 93 03/28/22 12:00 Resp 17 03/28/22 12:00 BP 123/79 03/28/22 12:00 Pulse Ox 95 03/28/22 12:00 O2 Del Method 03/28/22 12:00 03/28/22 03/28/22 03/28/22 06:59 14:59 22:59 Intake Total 1028.75 / 1981.25 211.25 / 211.25 Output Total 1050 / 1999 850 / 850 Balance -21.25 / -18.75 -638.75 / -638.75 Physical Exam Narrative: General: No acute distress, awake alert and oriented x3 Abdomen: Soft, mild distention, nontender, no guarding rebound or masses Colostomy pink patent and producing Data 03/28/22 03:38 03/28/22 03:38 A&P Assessment and plan (1) Constipation: Plan Continue IV fluids and NG tube Continue enemas We will consider removing NG tube tomorrow based on output Attestations Medical Necessity Statement*: Patient requires at least 1 more night in the hospital for return of bowel function due to severe constipation Coding Level of Care Code Acute Code for Chg Fwd Diagnoses Constipation K59.00
[2022-03-28] MEDS: alum-mag-hydroxide-sime 30 mL UDC PO (18:20)
[2022-03-28] MEDS: enoxaparin 40 mg/0.4 mL Syringe SUBCUT (21:29)
[2022-03-29] MEDS: lactulose oral liq 20 gm/30 mL UDC 30 GM PO ×4 (02:11→21:35)
[2022-03-29 04:00] VITALS: BP 116/74; PULSE 92; RESP 17; TEMP 36.6; O2SAT 95
--- NOTE | 2022-03-29 07:40 | XRR_ITS ---
PROCEDURE INFORMATION: Exam: XR Abdomen Exam date and time: 03/29/2022 8:37 AM Age: 47 years old Clinical indication: Device placement; Gi device; Other: Ngt; Constipation; Additional info: Ngt, emesis, constipation TECHNIQUE: Imaging protocol: Radiologic exam of the abdomen. Views: 2 Views. Upright and supine views. COMPARISON: CR (ABDOMEN, ) 03/27/2022 11:49 AM FINDINGS: Tubes, catheters and devices: An enteric tube is noted with the distal tip below the level of the diaphragm in the region of the stomach. Gastrointestinal tract: No abnormally dilated air-filled bowel loops identified. Intraperitoneal space: No significant mass effect identified within the abdomen. Bones/joints: Unremarkable. XR/XR acute abdomen series [id number] IMPRESSION: An enteric tube is noted with the distal tip below the level of the diaphragm in the region of the stomach.
[2022-03-29 07:55] VITALS: BP 125/77; PULSE 84; RESP 16; TEMP 36.4; O2SAT 98
[2022-03-29] MEDS: pantoprazole DR 40 mg Tablet PO ×2 (09:59→16:46)
[2022-03-29] MEDS: ketorolac 30 mg/mL INJ IVP ×2 (10:02→17:06)
[2022-03-29 11:28] VITALS: BP 122/80; PULSE 91; RESP 18; TEMP 36.4; O2SAT 97
[2022-03-29] MEDS: D5-NS 0.45% + KCL 20 mEq 20 MEQ/1,000 ML BAG 75 MEQ IV (12:28)
--- NOTE | 2022-03-29 14:09 | PM.PN ---
Subjective Subjective: Patient reports feeling much better. She is having output from her ostomy. Denies any nausea or vomiting, but there is significant output from her NG tube still Vitals/I&O/Wt Last Vital Signs Temp 98.9 F 03/30/22 12:00 Pulse 91 03/30/22 12:00 Resp 18 03/30/22 12:00 BP 138/79 03/30/22 12:00 Pulse Ox 97 03/30/22 12:00 O2 Del Method 03/30/22 12:00 03/29/22 03/30/22 03/30/22 22:59 06:59 14:59 Intake Total 1000 / 2007.5 807.5 / 807.5 Output Total 1200 / 1200 300 / 300 Balance -200 / 807.5 507.5 / 507.5 Physical Exam Narrative: General: No acute distress, awake alert and oriented x3 Abdomen: Soft, mild distention, nontender, no guarding rebound or masses Colostomy pink patent and producing Data 03/28/22 03:38 03/28/22 03:38 A&P Assessment and plan (1) Constipation: Plan Continue IV fluids and NG tube Continue enemas Take NG tube off suction and use it to 4 L of GoLytely Put NG tube back to suction if nausea Attestations Medical Necessity Statement*: Patient requires at least 1 more night in the hospital for clearance of constipation and then diet advancement Coding Level of Care Code Acute Code for Chg Fwd Diagnoses Constipation K59.00
[2022-03-29 16:00] VITALS: BP 109/75; PULSE 100; RESP 17; TEMP 36.4; O2SAT 97
[2022-03-29 19:55] VITALS: BP 109/73; PULSE 90; RESP 18; TEMP 36.9; O2SAT 98
[2022-03-29] MEDS: peg /e-lyte soln 4,000 mL Btl 4000 ML PO (20:31)
[2022-03-29] MEDS: enoxaparin 40 mg/0.4 mL Syringe SUBCUT (21:34)
[2022-03-29] MEDS: ondansetron 2 mg/ML SDV 2 mL 4 MG IVP (22:52)
--- NOTE | 2022-03-29 22:58 | PC.NURSE ---
Patient complained of nausea. Zofran was administered.
[2022-03-30] VITALS: BP 139/87; PULSE 99; RESP 17; TEMP 37.1; O2SAT 95
[2022-03-30] MEDS: ketorolac 30 mg/mL INJ IVP ×3 (01:03→13:54)
--- NOTE | 2022-03-30 01:14 | PC.NURSE ---
Patient still complaining of nausea and additionally complained of pain on scale of 5/10. Patient was given Toradol IVP. Attempts to continue Golytely were stopped and low intermittent suction was re-applied to NG tube per Dr Varela's orders message to nurse since patient was unable to tolerate Golytely. Canister of 1200ml was emptied on this nurse's shift so far, output green-brown but see-through. Patient stated that she experienced significant relief once suction was re-applied. Patient also stated that she believes the reason she started to experience nausea was due to lactulose.
[2022-03-30] MEDS: D5-NS 0.45% + KCL 20 mEq 20 MEQ/1,000 ML BAG 75 MEQ IV ×2 (03:09→13:55)
[2022-03-30 04:00] VITALS: BP 121/76; PULSE 100; RESP 18; TEMP 36.8; O2SAT 96
--- NOTE | 2022-03-30 05:08 | PC.NURSE ---
Patient refused lactulose
[2022-03-30 08:00] VITALS: BP 118/91; PULSE 96; RESP 18; TEMP 37; O2SAT 94
[2022-03-30] MEDS: lactulose oral liq 20 gm/30 mL UDC 30 GM PO (08:09)
[2022-03-30] MEDS: pantoprazole DR 40 mg Tablet PO ×2 (08:09→18:26)
[2022-03-30 12:00] VITALS: BP 138/79; PULSE 91; RESP 18; TEMP 37.2; O2SAT 97
--- NOTE | 2022-03-30 14:43 | PM.PN ---
Subjective Subjective: Patient took about a third of the GoLytely bottle yesterday but then became nauseous after also being given lactulose. She was put back to suction. Ostomy is functioning well today. She denies any abdominal pain Vitals/I&O/Wt Last Vital Signs Temp 98.9 F 03/30/22 12:00 Pulse 91 03/30/22 12:00 Resp 18 03/30/22 12:00 BP 138/79 03/30/22 12:00 Pulse Ox 97 03/30/22 12:00 O2 Del Method 03/30/22 12:00 03/29/22 03/30/22 03/30/22 22:59 06:59 14:59 Intake Total 1000 / 2007.5 807.5 / 807.5 Output Total 1200 / 1200 300 / 300 Balance -200 / 807.5 507.5 / 507.5 Physical Exam Narrative: General: No acute distress, awake alert and oriented x3 Abdomen: Soft, mild distention, nontender, no guarding rebound or masses Colostomy pink patent and producing Data 03/28/22 03:38 03/28/22 03:38 A&P Assessment and plan (1) Constipation: Plan Patient was taken back to the OR by the locum's physician so that he could put a finger in her ostomy and determined that nothing was wrong. Continue IV fluids and NG tube Continue enemas Clear liquids Take NG tube off suction and use it to give 4 L of GoLytely Put NG tube back to suction if nausea Attestations Medical Necessity Statement*: Patient requires at least 1 more night in the hospital for clearance of constipation and then diet advancement Coding Level of Care Code Acute Code for Chg Fwd Diagnoses Constipation K59.00
[2022-03-30 16:00] VITALS: BP 111/75; PULSE 88; RESP 18; TEMP 36.7; O2SAT 97
--- NOTE | 2022-03-30 18:41 | PC.NURSE ---
This nurse removed patient's NG tube. Patient tolerating clear liquid diet. Passing gas and 600ml of stool output through ostomy. Good urine output. Patient refusing IV placement at this time. Dr. Varela notified. Patient ambulating in the recio multiple times today.
[2022-03-30 20:00] VITALS: BP 117/81; PULSE 96; RESP 23; TEMP 36.8; O2SAT 99
[2022-03-30] MEDS: enoxaparin 40 mg/0.4 mL Syringe SUBCUT (21:29)
[2022-03-31] VITALS: BP 116/69; PULSE 92; RESP 19; TEMP 37; O2SAT 95
[2022-03-31 04:00] VITALS: BP 118/83; PULSE 97; RESP 22; TEMP 36.6; O2SAT 97
[2022-03-31] MEDS: alum-mag-hydroxide-sime 30 mL UDC PO ×2 (06:17→12:19)
[2022-03-31] MEDS: pantoprazole DR 40 mg Tablet PO (07:47)
[2022-03-31 08:00] VITALS: BP 130/83; PULSE 89; RESP 18; TEMP 36.8; O2SAT 94
--- NOTE | 2022-03-31 11:17 | PC.NURSE ---
Patient states that she was needing to go to the bathroom and when she stood up, her ostomy started leaking from the bottom. Evangelina Moraes RN removed ostomy applicance and allowed patient to go to the restroom. I obtained a new ostomy kit and presented to patient's room. She c/o increased nausea, however IV was d/c'd on 03/30 d/t patient no longer requiring IV hydration. I called and spoke with Dr. Varela and received a verbal order for Zofran PO 8 mg 1 tablet PRN every 8 hours for nausea/vomiting. Order placed. While waiting for pharmacy to verify Zofran, I cleansed the stoma and richie-stoma area with antibacterial soap and warm water, then patted dry. Applied skin prep to richie-stoma area and allowed to dry. Applied new appliance. Patient tolerated procedure well. Spoke with Dr. Varela and provided an update of GoLytely progress and ostomy application. No new orders received at this time. Administered PO Zofran as ordered. Patient is going to ambulate and will assess her nausea/vomiting at that time.
[2022-03-31] MEDS: ondansetron 4 MG Tablet 8 MG PO (11:25)
[2022-03-31 12:00] VITALS: BP 126/80; PULSE 85; RESP 17; TEMP 36.3; O2SAT 97
--- NOTE | 2022-03-31 12:21 | PC.NURSE ---
Rounded on patient and she states that her nausea has improved, but still c/o belching and acid burning feeling in her stomach. Provided Maalox as prescribed. Patient was able to tolerate it well. Will follow up with patient in a little while to assess condition.
--- NOTE | 2022-03-31 13:20 | PM.DCS ---
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 She was discharged home and then came back with severe constipation. The locum's surgeon performed an exam under anesthesia and found nothing wrong with the ostomy. She received multiple laxatives and her ostomy was working well and she was tolerating a diet prior to discharge Physical Exam Narrative: General : Patient is well developed , no acute distress, oriented x3 Head : Normal cephalic, a-traumatic. Ears : Pinnae and external canal are normal. Hearing is normal. Eyes : PERRLA, Sclera and injection are normal. No conjunctival discharge. Nose : Mucous membranes are without erythema. Throat : buccal mucosa is normal, gums are without significant recession or hypertrophy. Lungs : Equal chest rise bilaterally, no use of accessory muscles, trachea is midline. Cor : Rate and rhythm are normal. Abdomen : Soft, ND, NT, no g/r/m Ostomy pink patent and producing Extremities : No edema, no cyanosis or clubbing, dorsalis pedis pulses are present bilaterally, non-tender to palpation of calves. Upper extremities are normal bilaterally. Back : non-tender to palpation, no CVA tenderness. Neuro : CN II - XII intact, Upper and lower extremities have equal and full strength Discharge Data Studies Completed and Pending Completed Studies During Hospitalization Category Date Time Status CT abdomen pelvis w con* [id number] Stat Cat Scan 03/25/22 19:06 Completed XR KUB portable [id number] Urgent Exams 03/27/22 10:57 Completed XR acute abdomen series [id number] Routine Exams 03/29/22 07:40 Completed Radiology Impressions Abdomen/Pelvis CT 03/25/22 19:06 IMPRESSION: 1. Left lower quadrant colostomy with inflammation and bowel wall thickening in the portion of the colon within the subcutaneous fat suggesting possible infectious, ischemic or autoimmune colitis. 2. Inflammation in the subcutaneous fat surrounding the colostomy consistent with postoperative inflammation versus cellulitis. 3. Rectosigmoid colon stump with suture line in the left lower quadrant. Possible partial sigmoid colon resection. 4. The previously noted left colon intussusception in the descending colon is no longer present. 5. Interval appearance of moderate bowel wall thickening in a loop of proximal jejunum with edema in the surrounding mesentery which could represent infectious enteritis versus ischemic enteritis. Axial series 3, images 35-54. Internal hernia or closed loop obstruction are not definitely excluded. ADDENDUM: 03/25/222049 History: Patient vomited once before coming to the hospital, but has been eating since then without emesis. ADDENDUM: 03/25/222049 THIS REPORT CONTAINS FINDINGS THAT MAY BE CRITICAL TO PATIENT CARE. The findings were verbally communicated via telephone conference with FERN MORENO at 8:49 PM SUPERVISOR [employer]ONDING on 03/25/2022. The findings were acknowledged and understood. KUB X-Ray 03/27/22 10:57 IMPRESSION: High position of feeding tube, advancement is recommended. Chest/Abdomen X-ray 03/29/22 07:40 IMPRESSION: An enteric tube is noted with the distal tip below the level of the diaphragm in the region of the stomach. Laboratory Results WBC 5.6 10^3/uL (4.0-10.0) 03/28/22 03:38 RBC 4.14 10^6/uL (4.1-5.3) 03/28/22 03:38 Hgb 10.7 g/dL (11.5-15.3) L 03/28/22 03:38 Hct 34.3 % (37.0-47.0) L 03/28/22 03:38 MCV 82.9 fl (81-99) 03/28/22 03:38 MCH 25.8 pg (28.0-34.0) L 03/28/22 03:38 MCHC 31.2 g/dL (30.0-36.0) 03/28/22 03:38 RDW 12.8 % (12.1-15.1) 03/28/22 03:38 Plt Count 433 10^3/cmm (130-400) H 03/28/22 03:38 MPV 9.6 fL (7.4-10.4) 03/28/22 03:38 Neut % (Auto) 58.4 % 03/28/22 03:38 Lymph % (Auto) 27.2 % 03/28/22 03:38 Johnson % (Auto) 9.8 % 03/28/22 03:38 Eos % (Auto) 3.4 % 03/28/22 03:38 Baso % (Auto) 0.5 % 03/28/22 03:38 Neut # (Auto) 3.28 10^3/uL (1.8-7.7) 03/28/22 03:38 Lymph # (Auto) 1.5 10^3/uL (0.8-4.8) 03/28/22 03:38 Johnson # (Auto) 0.6 10^3/uL (0.2-0.9) 03/28/22 03:38 Eos # (Auto) 0.2 10^3/uL (0.0-0.8) 03/28/22 03:38 Baso # (Auto) 0.0 10^3/uL (0.0-0.1) 03/28/22 03:38 Nucleated RBC % (auto) 0 % 03/28/22 03:38 Nucleated RBCs # 0.0 /100WBC 03/28/22 03:38 Sodium 136 mmol/L (136-145) 03/28/22 03:38 Potassium 3.7 mmol/L (3.5-5.1) 03/28/22 03:38 Chloride 98 mmol/L (98-107) 03/28/22 03:38 Carbon Dioxide 29 mmol/L (22-29) 03/28/22 03:38 Anion Gap 12.7 (5-19) 03/28/22 03:38 BUN 10 mg/dL (6-20) 03/28/22 03:38 Creatinine 0.6 mg/dL (0.5-0.9) 03/28/22 03:38 GFR Calculation 107.2 mL/min (90-130) 03/28/22 03:38 Glucose 107 mg/dL (65-115) 03/28/22 03:38 Calculated Osmolality 282 mOsm/kg (285-295) L 03/28/22 03:38 Calcium 9.3 mg/dL (8.5-10.5) 03/28/22 03:38 Total Bilirubin 0.2 mg/dL (0.15-1.2) 03/26/22 01:05 AST 66 U/L (0-32) H 03/26/22 01:05 ALT 46 U/L (0-33) H 03/26/22 01:05 Alkaline Phosphatase 84 U/L (35-105) 03/26/22 01:05 Total Protein 6.5 g/dL (6.6-8.7) L 03/26/22 01:05 Albumin 3.7 g/dL (3.5-5.2) 03/26/22 01:05 Globulin 2.8 g/dL (1.3-4.6) 03/26/22 01:05 Lipase 130 U/L (13-60) H 03/25/22 19:06 Procedures Performed Exam under anesthesia Vitals Last Vital Signs Temp 97.4 F L 03/31/22 12:00 Pulse 85 03/31/22 12:00 Resp 17 03/31/22 12:00 BP 126/80 03/31/22 12:00 Pulse Ox 97 03/31/22 12:00 O2 Del Method 03/31/22 12:00 Discharge Plan Discharge Patient Disposition: Home Condition: Stable Prescriptions: New Protonix 40 mg tablet,delayed release (DR/EC) 40 mg PO BID 42 Days Qty: 84 1RF Reglan 5 mg tablet 5 mg PO TID 30 Days Qty: 90 1RF ondansetron 8 mg tablet,disintegrating 8 mg PO TID PRN (Reason: nausea and vomiting) Qty: 60 1RF Continued lactulose 10 gram/15 mL (15 mL) solution 20 g PO BID Qty: 600 0RF bupropion HCl 150 mg tablet sustained-release 12 hr 150 mg PO BID Qty: 180 2RF Ubrelvy 100 mg tablet 100 mg PO DAILY PRN (Reason: Headache) hydrocodone-acetaminophen 7.5-325 mg tablet 1 tab PO Q6H PRN (Reason: pain) Qty: 20 0RF docusate sodium [DOK] 100 mg capsule 100 mg PO BID Qty: 20 0RF naproxen sodium 220 mg Capsule 220 mg PO BID PRN (Reason: Pain) Discharge Orders: Discharge Order (Routine); Ordered 03/31/22 Ordered By: Micah Varela Referrals: [facility] ([facility]) [Outside] Micah Varela DO [Physician] - 2 weeks Momo Bocanegra DO [Primary Care Provider] - 4-7 days Discharge Diet: Advance as tolerated Discharge Activity: Limit activity as instructed Patient Instructions: Opioid Safety Activity Restrictions/Additional Instructions: No lifting, pushing or pulling over 15 pounds for 6 weeks from surgery date Discharge Attestations Time Spent in Discharge Care*: less than 30 min Quality Metrics Clinical Quality Measures [ No reported AMI, CVA or VTE this stay] Coding Level of Care Code Acute Code for Chg Fwd Diagnoses Constipation K59.00
== END 2022-03-31 14:45 | disposition home health service (06) | DRG 392 ==
LOC: ER 22:29 → MEDSURG 22:56
PROVIDERS: Admitting Provider Surgery Surgical Critical Care; Emergency Provider Family Medicine; PCP Family Medicine; Visit Provider Surgery Surgical Critical Care
PROC: 0D7 Gastrointestinal System, Dilation (ICD-10-PCS; principal; 2022-03-26 13:05)
DX: K59.01 Slow transit constipation (principal); Z93.3 Colostomy status; Z90.49 Acquired absence of other specified parts of digestive tract; F32.9 Major depressive disorder, single episode, unspecified; G43.909 Migraine, unspecified, not intractable, without status migrainosus
CPT/HCPCS: 12345; 36415; 74018; 74022; 74177; 80048; 80053; 83690; 85014; 85018; 85025; 96365; 96372; 96375; 99222; 99233; 99285; G0378; J1650; J1885; J2250; J2270; J2405; J2704; J3010; J7030; Q0162; Q9967

== ENCOUNTER 2022-04-04 15:14 | Emergency (ER) | payer OTHER, SELFPAY ==
[2022-04-04 15:31] VITALS: BP 140/81; PULSE 97; RESP 18; TEMP 36.2; O2SAT 97
[2022-04-04 16:53] VITALS: BP 131/80; PULSE 88; O2SAT 98
--- NOTE | 2022-04-04 17:26 | ED_ITS ---
HPI - General Adult General: Chief complaint: General Medical Stated complaint: 2 week old stoma bleeding Time Seen by Provider: 04/04/22 15:43 History of Present Illness: Patient comes in with bleeding around her stoma. States that she had an ostomy placed 2 weeks ago after having a mass removed on her intestine. States that she has been having complications with the ostomy equipment leaking. States that today she noticed some bleeding that after holding pressure got worse. She was advised to come evaluated in the emergency department. On arrival here the bleeding has stopped. The stoma appears to be healing well. I cleaned and dried the area and replaced a new ostomy bag. I talked to her about symptoms that should prompt immediate return to the emergency department. Associated symptoms: Deny chest pain, dyspnea, headache(s), nausea, rash, palpitations or vomiting Review of Systems Const: Denies: fever(s) or body aches Eyes: Denies: change in vision or blurry vision ENMT: Denies: throat pain or odynophagia Card: Denies: chest pain or palpitations Resp: Denies: dyspnea or productive cough GI: Denies: abdominal pain, nausea or vomiting : Denies: flank pain or dysuria Musc: Denies: neck pain or back pain Skin/Breast: Denies: rash or pruritus Neuro: Denies: headache(s) or numbness in extremities Psych: Denies: anxiety or change in appetite Endo: Denies: polyuria or excessive sweating PFSH ED PFSH: Medical History Chronic constipation Gestational diabetes Major depression Surgical History [place] teeth extracted Family History Other CAD (coronary artery disease) Cancer Clotting disorder Diabetes Social History Smoking and tobacco status: never smoked Alcohol intake: current Alcohol intake frequency: holidays/special occasions only Marital status: Number of children: 3 Current occupation: nurse Female Reproductive History: Date of last menstrual period: 02/25/22 Physical Exam Const: COMMON NORMALS: no acute distress, patient oriented x3, healthy appearing and alert HENMT: COMMON NORMALS: normocephalic and atraumatic HEAD & SCALP: normocephalic and atraumatic Eye: COMMON NORMALS: Equal, round and reactive pupils present and EOMs intact bilaterally PUPIL: Yes Equal, round and reactive pupils present Neck/C-Spine: COMMON NORMALS: full ROM and supple Resp: COMMON NORMALS: normal respiratory effort, No retractions and No use of accessory muscles Cardio: COMMON NORMALS: regular rate and regular rhythm RATE: regular rate RHYTHM: regular rhythm GI: COMMON NORMALS: Soft to palpation and non-tender PALPATION: Yes Soft to palpation OTHER: Surgical wound is clean dry and intact and well-healing. Stoma is slightly erythematous but appears to be healing well. There is no active bleeding Back/Pelvis: COMMON NORMALS: thoracic and lumbar spine normal to inspection and no thoracic nor lumbar tenderness Extremity: COMMON NORMALS: normal to inspection and full ROM Neuro: COMMON NORMALS: patient oriented x3 SENSORIUM/ORIENTATION: Yes alert Psych: COMMON NORMALS: mental status grossly normal and cooperative Skin: COMMON NORMALS: no rashes or lesions noted and no wounds GENERAL SKIN EXAM: no rashes or lesions noted Course Vital Signs: Vital signs: Vital Signs Temperature 97.2 F L 04/04/22 15:31 Pulse Rate 88 04/04/22 16:53 Respiratory Rate 18 04/04/22 15:31 Blood Pressure 131/80 04/04/22 16:53 Pulse Oximetry 98 04/04/22 16:53 Oxygen Delivery Me thod 04/04/22 16:53 MDM - General Adult Medical Decision Making Patient comes in with bleeding around her stoma. States that she had an ostomy placed 2 weeks ago after having a mass removed on her intestine. States that she has been having complications with the ostomy equipment leaking. States that today she noticed some bleeding that after holding pressure got worse. She was advised to come evaluated in the emergency department. On arrival here the bleeding has stopped. The stoma appears to be healing well. I cleaned and dried the area and replaced a new ostomy bag. I talked to her about symptoms that should prompt immediate return to the emergency department. We will discharge home at this time. Discharge Plan Discharge Patient Disposition: Home Clinical Impression: Complication of external stoma of gastrointestinal tract Condition: Stable Prescriptions: No Action lactulose 10 gram/15 mL (15 mL) solution 20 g PO BID Qty: 600 0RF bupropion HCl 150 mg tablet sustained-release 12 hr 150 mg PO BID Qty: 180 2RF Ubrelvy 100 mg tablet 100 mg PO DAILY PRN (Reason: Headache) hydrocodone-acetaminophen 7.5-325 mg tablet 1 tab PO Q6H PRN (Reason: pain) Qty: 20 0RF docusate sodium [DOK] 100 mg capsule 100 mg PO BID Qty: 20 0RF naproxen sodium 220 mg Capsule 220 mg PO BID PRN (Reason: Pain) Protonix 40 mg tablet,delayed release (DR/EC) 40 mg PO BID 42 Days Qty: 84 1RF Reglan 5 mg tablet 5 mg PO TID 30 Days Qty: 90 1RF ondansetron 8 mg tablet,disintegrating 8 mg PO TID PRN (Reason: nausea and vomiting) Qty: 60 1RF Discharge Orders: Discharge ED (Routine); Ordered 04/04/22 Ordered By: Reji Doss Referrals: Momo Bocanegra DO [Primary Care Provider] - Coding Level of Care Code ED Orthopedic Tech for Chg Teresa
[2022-04-04 17:44] VITALS: BP 127/78; PULSE 88; O2SAT 98
--- NOTE | 2022-04-04 17:47 | PC.NURSE ---
Pt needs charged for stoma dressing kit, barrier cream, barrier powder.
== END 2022-04-04 17:47 | disposition home or self-care (01) ==
PROVIDERS: Emergency Provider Emergency Medicine; PCP Family Medicine
DX: K94.00 Colostomy complication, unspecified (principal)
CPT/HCPCS: 99282

== ENCOUNTER → 2023-03-31 07:54 | Outpatient (BNVA) | payer OTHER, SELFPAY | PROVIDERS: PCP Family Medicine; Visit Provider Family Medicine | DX: K59.09 Other constipation (principal); Z90.49 Acquired absence of other specified parts of digestive tract; Z00.00 Encounter for general adult medical examination without abnormal findings; O24.419 Gestational diabetes mellitus in pregnancy, unspecified control; F32.9 Major depressive disorder, single episode, unspecified; Z13.6 Encounter for screening for cardiovascular disorders; E03.9 Hypothyroidism, unspecified | CPT/HCPCS: 80053; 80061; 82607; 83036; 84443; 85025 ==

== ENCOUNTER → 2023-04-07 11:35 | Outpatient (BNVA) | payer OTHER, SELFPAY | PROVIDERS: PCP Family Medicine; Visit Provider Family Medicine | DX: Z00.00 Encounter for general adult medical examination without abnormal findings (principal); Z12.4 Encounter for screening for malignant neoplasm of cervix | CPT/HCPCS: 88175 ==

== ENCOUNTER 2023-04-14 13:05 | Outpatient (CLI) | payer OTHER, SELFPAY ==
--- NOTE | 2023-04-14 13:07 | MM_ITS ---
WS: [id number] BILATERAL 3D TOMOSYNTHESIS DIGITAL SCREENING MAMMOGRAM WITH CAD CLINICAL INFORMATION: SCREENING HISTORY: Screening mammogram. No current complaints. COMPARISON: 2020 TECHNIQUE: Bilateral CC and MLO. FINDINGS: The breast are composed of extremely dense tissue, which can limit the detection of small underlying mass lesions. No suspicious focal mass, asymmetry, calcifications, or architectural distortion. No ev idence of malignancy. Punctate and lucent centered calcifications. IMPRESSION: MM/[place] [id number] BI-RADS: 2-Benign FOLLOW UP: 1 Year Follow-up Recommend return to annual screening mammography.
== END 2023-04-14 13:06 | disposition home or self-care (01) ==
LOC: RAD 13:05
PROVIDERS: PCP Family Medicine; Visit Provider Family Medicine
DX: Z12.39 Encounter for other screening for malignant neoplasm of breast (principal); R92.30 Dense breasts, unspecified
CPT/HCPCS: 77063; 77067

== ENCOUNTER → 2024-03-29 07:11 | Outpatient (BNVA) | payer OTHER, SELFPAY | PROVIDERS: PCP Family Medicine; Visit Provider Family Medicine | DX: Z00.00 Encounter for general adult medical examination without abnormal findings (principal); Z83.2 Family history of diseases of the blood and blood-forming organs and certain disorders involving the immune mechanism; F32.9 Major depressive disorder, single episode, unspecified; E03.9 Hypothyroidism, unspecified | CPT/HCPCS: 80053; 80061; 81241; 82607; 83036; 84443; 85025 ==

== ENCOUNTER → 2024-04-04 15:14 | Outpatient (BNVA) | payer OTHER, SELFPAY | PROVIDERS: PCP Family Medicine; Visit Provider Nurse Practitioner Women's Health | DX: N95.1 Menopausal and female climacteric states (principal) | CPT/HCPCS: 82670 ==

== ENCOUNTER 2024-04-24 13:06 | Outpatient (CLI) | payer OTHER, SELFPAY ==
--- NOTE | 2024-04-24 13:40 | MM_ITS ---
WS: [id number] BILATERAL 3D TOMOSYNTHESIS DIGITAL SCREENING MAMMOGRAM WITH CAD CLINICAL INFORMATION: Z12.31 - Encounter for screening mammogram for malignant ... HISTORY: Screening mammogram. No current complaints. COMPARISON: 2023 TECHNIQUE: Bilateral CC and MLO. FINDINGS: The breast are composed of extremely dense tissue, which can limit the detection of small underlying mass lesions. No suspicious focal mass, asymmetry, calcifications, or architectural distortion. No evidence of malignancy. Punctate and lucent centered calcifications. MM/MM [facility] tomosynthesis [id number] IMPRESSION: DENSITY: The breasts are heterogeneously dense, which may obscure small masses. BI-RADS: 2 - Benign FOLLOW UP: 1 Year Follow-up Recommend return to annual screening mammography.
== END 2024-04-24 13:07 | disposition home or self-care (01) ==
LOC: RAD 13:09
PROVIDERS: PCP Family Medicine; Visit Provider Nurse Practitioner Women's Health
DX: Z12.31 Encounter for screening mammogram for malignant neoplasm of breast (principal); R92.343 Mammographic extreme density, bilateral breasts; R92.1 Mammographic calcification found on diagnostic imaging of breast
CPT/HCPCS: 77063; 77067

== ENCOUNTER → 2024-07-09 09:08 | Outpatient (BNVA) | payer OTHER, SELFPAY | PROVIDERS: PCP Family Medicine; Visit Provider Nurse Practitioner Women's Health | DX: R53.83 Other fatigue (principal) | CPT/HCPCS: 82306 ==

== ENCOUNTER → 2024-09-03 09:46 | Outpatient (BNVA) | payer OTHER, SELFPAY | PROVIDERS: PCP Family Medicine; Visit Provider Family Medicine | DX: E55.9 Vitamin D deficiency, unspecified (principal) | CPT/HCPCS: 82306 ==

== ENCOUNTER → 2024-12-03 10:14 | Outpatient (BNVA) | payer OTHER, SELFPAY | PROVIDERS: PCP Family Medicine; Visit Provider Nurse Practitioner Women's Health | DX: N92.4 Excessive bleeding in the premenopausal period (principal); Z30.430 Encounter for insertion of intrauterine contraceptive device | CPT/HCPCS: 81025 ==

== ENCOUNTER → 2025-02-19 13:24 | Outpatient (BNVA) | payer OTHER, SELFPAY | PROVIDERS: PCP Family Medicine; Visit Provider Nurse Practitioner Women's Health | DX: E78.00 Pure hypercholesterolemia, unspecified (principal); E66.3 Overweight | CPT/HCPCS: 80053; 83036; 84439; 84443 ==